=== PATIENT | female | born 1950 | race Caucasian/White ===

== ENCOUNTER 2021-10-19 11:44 | Outpatient (REF) | payer MEDICARE, SELFPAY ==
[2021-10-19 13:58] LABS: Estimated Average Glucose 148 mg/dL; Hemoglobin A1c % 6.8 %
[2021-10-19 14:24] LABS: Alanine Aminotransferase 22 U/L (0-31); Albumin Level 4.2 g/dL (3.5-5.0); Alkaline Phosphatase 71 U/L (39-117); Anion Gap 12 (12-20); Aspartate Amino Transferase 19 U/L (5-31); Bilirubin Total 0.3 mg/dL (0.0-1.0); Blood Urea Nitrogen 10 mg/dL (9-16); Calcium 8.9 mg/dL (8.4-10.2); Carbon Dioxide 28 mmol/L (22-29); Chloride 102 mmol/L (96-108); Estimated Glomerular Filt Rate > 60; Glucose Random 166 mg/dL (60-115); Potassium 4.6 mmol/L (3.3-5.1); Sodium 137 mmol/L (135-145); Total Protein 6.7 g/dL (6.5-8.0)
== END 2021-10-19 11:45 | disposition home or self-care (01) ==
LOC: HO.10HDL 11:44
PROVIDERS: Visit Provider Internal Medicine
DX: E11.9 Type 2 diabetes mellitus without complications (principal); E78.00 Pure hypercholesterolemia, unspecified; I10 Essential (primary) hypertension; Z91.19 Patient's noncompliance with other medical treatment and regimen
CPT/HCPCS: 36415; 80053; 83036

== ENCOUNTER 2022-02-18 08:27 | Observation (INO) | payer MEDICARE, SELFPAY ==
[2022-02-18] VITALS (8 sets, daily range): BP systolic 108–155; BP diastolic 48–80; PULSE 61–100; RESP 14–18; TEMP 36.8–36.9; O2SAT 92–100; BMI 27.3
--- NOTE | ~2022-02-18 | XR_ITS ---
EXAMINATION: XR CHEST CLINICAL INFORMATION: Shortness of breath COMPARISON: Multiple prior chest x-rays with last chest x-rays of 01/22/2017 TECHNIQUE: Frontal view of the chest was obtained. FINDINGS: The lungs are mildly hypoexpanded. Stable mild elevation of the right hemidiaphragm. Cardiomediastinal silhouette is stable and normal. No focal consolidation, changes of congestion, pleural effusions or pneumothorax are seen. Regional skeleton appears intact. XR/XR chest 1V IMPRESSION: No radiographic evidence of pneumonia or overt pulmonary edema.
--- NOTE | ~2022-02-18 | CT_ITS ---
EXAMINATION: CT ABDOMEN AND PELVIS WITH CONTRAST CT BRAIN AND CT CERVICAL SPINE WITHOUT CONTRAST CLINICAL INFORMATION: Altered mental status. COMPARISON: CT brain and cervical spine 07/10/2018. CT abdomen and pelvis 01/19/2017. TECHNIQUE: 5 mm thin axial and reformatted 2 mm thin sagittal and coronal images of brain were obtained. Axial 3 mm thin and reformatted 2 mm thin sagittal coronal images of cervical spine were obtained. DLP [id number]. Lastly axial 5 mm thin and reformatted 3 mm thin sagittal and coronal images of abdomen were obtained following IV 85 mL Omnipaque 350. FINDINGS: Brain: There is no acute intra-axial, extra-axial bleed, masses or midline shift. There is no acute infarction evolution. There is no edema. The lateral ventricles are symmetrical but enlarged. Mild periventricular hypodensity seen in both cerebral hemispheres without mass effect. Bone windows reveal no calvarial abnormality. There is no scalp soft tissue abnormality. Bilateral paranasal sinuses and mastoid air cells are well-aerated. There is mild mucoperiosteal thickening bilateral maxillary and ethmoid sinuses. Rest of this sinuses and mastoid air cells are well-aerated. Cervical spine: There is normal cervical lordosis. The vertebral heights, alignment and disc heights are normal. The craniovertebral junction and the C1-C2 alignment is normal. There is no visible acute fracture, dislocation or subluxation seen. The airway is widely patent. Prevertebral and paravertebral soft tissues are normal. The thyroid lobes are enlarged and heterogeneous with calcification question goiter. There are multiple scattered borderline anterior and posterior neck lymph nodes. Question etiology. The lung apices are clear. ABDOMEN AND PELVIS: There is dependent bibasilar atelectasis. The heart size is normal. The liver is normal size, contour and density. No focal lesion or intrahepatic ductal dilatation seen. The gallbladder has been surgically removed. Visualized spleen, pancreas and bilateral adrenal glands are unremarkable. Both kidneys are normal size, shape and position. No radiopaque calculi are hydronephrosis seen. The abdominal aorta is of normal caliber. No retroperitoneal abnormal size lymph nodes or mass seen. There is scattered stool, gas and scattered diverticula seen throughout the colon without diverticulitis or distention. The small bowel loops are normal caliber. Appendix is not visualized with certainty. The cecum is slightly prominent with air-fluid level. No free air or free fluid seen. The abdominal wall appears unremarkable. Imaging through the pelvis reveals a distended urinary bladder. The uterus is anteverted with thickened endometrium measuring 8 mm and is of normal. No adnexal mass or free fluid seen. There are reactive small inguinal lymph nodes. No abnormal pelvic lymph nodes seen. There is no free fluid. Heterogeneous bone marrow is seen throughout the lower dorsal and lumbosacral spine. There are degenerative disc changes L4-L5 L5/S1 disc levels. CT/CT cervical spine wo con IMPRESSION: No acute intracranial process seen. Age-related volume loss. There is no visible acute fracture, dislocation or subluxation in cervical spine. Slightly heterogeneous appearing bone marrow involving the cervical, dorsal and lumbosacral spine. Distended urinary bladder. There is diffuse thickened endometrium and anteverted uterus. Recommend gynecological consultation. Slightly prominent cecum but otherwise unremarkable colon with mild constipation.
--- NOTE | ~2022-02-18 | MR_ITS ---
EXAMINATION: MR BRAIN WITHOUT CONTRAST CLINICAL INFORMATION: Question posterior stroke. COMPARISON: Head CT 02/18/2022. TECHNIQUE: Multiplanar, multisequence imaging of the brain was performed without intravenous contrast. FINDINGS: There is no acute infarction, hemorrhage, mass, or extra-axial fluid collection. Moderate patchy foci of T2/FLAIR hyperintensity are seen within the cerebral white matter, typical of chronic microangiopathy. The ventricles are normal in size and commensurate with the sulci. Mild degree of brain parenchymal volume loss is noted. The major arterial flow voids are preserved at the skull base. The orbital contents appear normal. There is paranasal sinus mucosal thickening and layering secretions in the maxillary sinuses. The extracranial structures are otherwise unremarkable. MR/MR head/brain wo con IMPRESSION: No acute intracranial abnormality. Background changes of chronic microangiopathy. Inflammatory changes in the paranasal sinuses.
--- NOTE | ~2022-02-18 | XR_ITS ---
EXAMINATION: XR KNEE, LEFT CLINICAL INFORMATION: Fall COMPARISON: None TECHNIQUE: Four views of the left knee. FINDINGS: There is no evidence of acute fracture or dislocation of the left knee. The left knee joint spaces are maintained. No left knee effusion. Patella spurs at sites of insertion of quadriceps and patellar tendons noted. XR/XR knee LT 3V IMPRESSION: No acute fracture or dislocation of the left knee. No left knee effusion.
--- NOTE | 2022-02-18 08:52 | PC.NURSE ---
pt alert but not oriented. she is aware she is in [facility], believes it is night time and that jose is president, she was able to self correct and report the proper president. pt reporting it is dirk
--- NOTE | 2022-02-18 09:12 | ECG_ITS ---
Test Reason : fall Blood Pressure : / mmHG Vent. Rate : 089 BPM Atrial Rate : 089 BPM P-R Int : 178 ms QRS Dur : 086 ms QT Int : 358 ms P-R-T Axes : 055 -15 014 degrees QTc Int : 435 ms Normal sinus rhythm Possible Left atrial enlargement Inferior infarct (cited on or before 10-JUL-2018) Cannot rule out Anterior infarct , age undetermined Abnormal ECG When compared with ECG of 10-JUL-2018 09:58, Minimal criteria for Anterior infarct are now Present Nonspecific T wave abnormality now evident in Anterior leads Referred By: Adilene Watson Electronically Signed By:Salinas Cheng
--- NOTE | 2022-02-18 09:25 | ED_ITS ---
HPI - Fall General Chief Complaint: Fall Stated Complaint: fall Time Seen by Provider: 02/18/22 08:44 History of Present Illness HPI Narrative: Patient is a 71-year-old female presents today having 2 falls. The initial fall was last night. Patient was helped by EMS to get up. Subsequently fell again a 2nd time. A 2nd fall happened around midnight. Patient was on the ground all night. Subsequently EMS was contacted by patient's [id number] mother. Patient was brought to the ED for further evaluation. Patient complaining of pain to her neck. Complaining of pain to her back. Julita plana pain to the left knee. There is no bowel urinary incontinence. There is no focal weakness. Positive generalized malaise. Patient denies any changes in medication. Question compliance with beta-chapincito patient has a history of being on Ambien. No coughing or congestion or upper respiratory symptoms. No diaphoresis. Patient immunized for COVID. Related Data Home Medications Medication Instructions Recorded Confirmed aspirin 81 mg tablet,delayed 1 tab PO DAILY 02/18/22 02/18/22 release carvedilol 3.125 mg tablet 1 tab PO BID 02/18/22 02/18/22 clonazepam 0.5 mg tablet 0.5 mg PO BID@0900,1200 02/18/22 02/18/22 clonazepam 0.5 mg tablet 0.5 mg PO DAILY PRN 02/18/22 02/18/22 clonazepam 0.5 mg tablet 1 mg PO BEDTIME 02/18/22 02/18/22 escitalopram oxalate 10 mg tablet 1 tab PO DAILY 02/18/22 02/18/22 hydroxyzine pamoate 50 mg capsule 2 cap PO BEDTIME 02/18/22 02/18/22 ibuprofen 200 mg tablet (Advil) 400 mg PO Q6H PRN 02/18/22 02/18/22 metformin 500 mg tablet 1 tab PO BID 02/18/22 02/18/22 olanzapine 5 mg tablet 1 tab PO QPM 02/18/22 02/18/22 zolpidem 10 mg tablet 1 tab PO QPM 02/18/22 02/18/22 Allergies Allergy/AdvReac Type Severity Reaction Status Date / Time No Known Allergies Allergy Unverified 08/18/20 16:05 [No Known Allergies*] Review of Systems Review of Systems: No fever no chills No cough and no congestion or upper respiratory symptoms No diaphoresis Positive generalized malaise Questions sore throat No bowel urinary incontinence No nausea no vomiting Yes all other systems are reviewed and are negative [facility] Past Medical History Attestation statement: The following information was validated with the patient. Medical History (Updated 02/18/22 @ 16:02 by Sia Greene NP) Anxiety Diabetes mellitus Surgical History (Updated 02/18/22 @ 16:02 by Sia Greene NP) History of cholecystectomy Family History Family History (Updated 02/18/22 @ 16:03 by Sia Greene NP) Other Cancer Coronary artery disease Diabetes mellitus Hypertension Social History Social History Advance Directives: Yes Advance Directives Information Provided: Yes Advance Directives on File: No Physical Exam Vital Signs: Vital Signs: Last Vital Signs Temp 98.3 F 02/18/22 08:43 Pulse 100 02/18/22 15:44 Resp 14 02/18/22 12:42 BP 115/52 L 02/18/22 15:44 Pulse Ox 100 02/18/22 15:44 BMI result Body Mass Index 27.3 Appearance: Generalized malaise awake alert answering basic questions oriented x3 No acute distress. Eyes: Pupils equal, round and reactive to light. ENT: Pharynx normal. Neck: Normal inspection. Neck supple. No lymph nodes noted. No crepitus CVS: Normal heart rate and rhythm. Pulses normal. Normal S1 and S2 Respiratory: No respiratory distress. Breath sounds normal. No Wheezing. No rales Abdomen: Soft and nontender. No rigidity. No distention. good BS x4 Skin: Skin warm and dry. Normal skin color. Normal skin turgor. Extremities: No lower extremity edema. Neurovascular intact to all extremities. No Lacerations. No Rash Neuro: Lethargic but oriented. No motor deficit. No sensory deficit. Moving all extermities. No slurred speech NIH Stroke Scale Internal: Initial- Upon Arrival Level of Consciousness: Alert Level of Consciousness Questions: Answers both questions correctly Level of Consciousness Commands: Performs both tasks correctly Best Gaze: Normal Visual: No visual loss Facial Palsy: Normal Motor Arm (Right): No drift Motor Arm (Left): No drift Motor Leg (Right): No drift Motor Leg (Left): No drift Limb Ataxia: Absent Sensory: Normal Dysarthia: Normal Extinction and Inattention: No abnormality MDM - Fall MDM Narrative Medical decision making narrative: CT the head was grossly negative for any acute evidence of intracranial bleeding. CT scan of the C-spine were grossly negative for any acute evidence of fracture. CT scan of the abdomen pelvis was negative for any acute evidence of obstruction, abscess, perforation. Patient complaining of generalized malaise weakness. Change in mental status. More lethargic than baseline. Sugar was 133. No evidence for hypoglycemia. Patient's urine showed no evidence of infection. Patient electrolytes were normal. Positive generalized malaise weakness ambulated patient. Has a wide gait. Question etiology of the change in gait. Cannot rule out the possibility of posterior circulation stroke. Will admit patient for further evaluation. Patient's EKG showed a sinus pattern heart rate was 100 [place] QRS QT within normal limits no acute ST segment elevation. Medical Records Attestation: I reviewed the patient's medical records. Lab Data Attestation: I reviewed the patient's lab results. Result diagrams: 02/18/22 09:37 02/18/22 09:37 Labs: Lab Results 02/18/22 02/18/22 02/18/22 Range/Units 09:37 09:37 09:37 WBC 8.9 (4.8-10.8) X10*3/uL RBC 4.63 (4.20-5.50) X10*6/uL Hgb 13.6 (12.0-16.0) g/dl Hct 41.7 (37.0-47.0) % MCV 90.1 (80.0-98.0) fL MCH 29.4 (27.0-33.0) pg MCHC 32.6 (31.0-35.0) g/dl RDW 13.3 (11.0-16.0) % Plt Count 225 (160-400) X10*3/uL MPV 10.1 (9.4-12.3) fL Immature Gran % (Auto) 0.3 (0.0-0.4) % Neut % (Auto) 76.2 H (45-73) % Lymph % (Auto) 12.5 L (20-40) % [place] % (Auto) 9.1 (2-11) % Eos % (Auto) 1.6 (0-4) % Baso % (Auto) 0.3 (0-2) % Lymph # (Auto) 1.1 L (1.2-4.9) X10*3/uL [place] # (Auto) 0.8 (0.1-1.2) X10*3/uL Eos # (Auto) 0.1 (0.0-0.4) X10*3/uL Baso # (Auto) 0.0 (0.0-0.2) X10*3/uL Abs Immat Gran (auto) 0.03 (0.00-0.03) X10*3/uL Absolute Neuts (auto) 6.7 (2.0-8.3) x10*3/uL Absolute Nucleated RBC 0.000 (0.0-0.012) X10*3/uL Nucleated RBC % (auto) 0.0 (0.0-0.2) /100WBC VBG pH (7.32-7.43) VBG pCO2 mmHg VBG pO2 mmHg VBG HCO3 (22-26) mmol/L VBG O2 Saturation % VBG Base Excess mmol/L Sodium 137 (135-145) mmol/L Potassium 3.9 (3.3-5.1) mmol/L Chloride 99 (96-108) mmol/L Carbon Dioxide 29 (22-29) mmol/L Anion Gap 13 (12-20) BUN 11 (9-16) mg/dL Creatinine 0.71 (0.5-1.4) mg/dL Estim Creat Clear Calc 77.1 Estimated GFR > 60 Random Glucose 133 H (60-115) mg/dL Calcium 9.6 D (8.4-10.2) mg/dL Total Bilirubin 0.5 (0.0-1.0) mg/dL Direct Bilirubin 0.2 (0.0-0.5) mg/dL AST 25 (5-31) U/L ALT 20 (0-31) U/L Alkaline Phosphatase 63 (39-117) U/L Total Creatine Kinase 687 H (26-140) U/L Troponin I High Sens < 3.5 (<3.5-17.0) ng/L Total Protein 7.0 (6.5-8.0) g/dL Albumin 4.4 (3.5-5.0) g/dL Lipase 21 (8-78) U/L Urine Color Urine Appearance Urine pH (5.0-8.0) Ur Specific [place] (1.005-1.025) Urine Protein (NEG-TRACE) MG/DL Urine Glucose (UA) (NEG) MG/DL Urine Ketones (NEG) MG/DL Urine Blood (NEG) Urine Nitrite (NEG) Ur Leukocyte Esterase (NEG) Urine RBC (0) /HPF Urine WBC (0-4) /HPF Ur Squamous Epith Cells /LPF Urine Bacteria /LPF Ethyl Alcohol mg/dL S. pyogenes GrpA CHAGO (Negative) 02/18/22 02/18/22 02/18/22 Range/Units 09:37 09:37 09:39 WBC (4.8-10.8) X10*3/uL RBC (4.20-5.50) X10*6/uL Hgb (12.0-16.0) g/dl Hct (37.0-47.0) % MCV (80.0-98.0) fL MCH (27.0-33.0) pg MCHC (31.0-35.0) g/dl RDW (11.0-16.0) % Plt Count (160-400) X10*3/uL MPV (9.4-12.3) fL Immature Gran % (Auto) (0.0-0.4) % Neut % (Auto) (45-73) % Lymph % (Auto) (20-40) % [place] % (Auto) (2-11) % Eos % (Auto) (0-4) % Baso % (Auto) (0-2) % Lymph # (Auto) (1.2-4.9) X10*3/uL [place] # (Auto) (0.1-1.2) X10*3/uL Eos # (Auto) (0.0-0.4) X10*3/uL Baso # (Auto) (0.0-0.2) X10*3/uL Abs Immat Gran (auto) (0.00-0.03) X10*3/uL Absolute Neuts (auto) (2.0-8.3) x10*3/uL Absolute Nucleated RBC (0.0-0.012) X10*3/uL Nucleated RBC % (auto) (0.0-0.2) /100WBC VBG pH 7.38 (7.32-7.43) VBG pCO2 55 mmHg VBG pO2 30 mmHg VBG HCO3 32 H (22-26) mmol/L VBG O2 Saturation 40.0 % VBG Base Excess 6.0 mmol/L Sodium (135-145) mmol/L Potassium (3.3-5.1) mmol/L Chloride (96-108) mmol/L Carbon Dioxide (22-29) mmol/L Anion Gap (12-20) BUN (9-16) mg/dL Creatinine (0.5-1.4) mg/dL Estim Creat Clear Calc Estimated GFR Random Glucose (60-115) mg/dL Calcium (8.4-10.2) mg/dL Total Bilirubin (0.0-1.0) mg/dL Direct Bilirubin (0.0-0.5) mg/dL AST (5-31) U/L ALT (0-31) U/L Alkaline Phosphatase (39-117) U/L Total Creatine Kinase (26-140) U/L Troponin I High Sens (<3.5-17.0) ng/L Total Protein (6.5-8.0) g/dL Albumin (3.5-5.0) g/dL Lipase (8-78) U/L Urine Color Urine Appearance Urine pH (5.0-8.0) Ur Specific [place] (1.005-1.025) Urine Protein (NEG-TRACE) MG/DL Urine Glucose (UA) (NEG) MG/DL Urine Ketones (NEG) MG/DL Urine Blood (NEG) Urine Nitrite (NEG) Ur Leukocyte Esterase (NEG) Urine RBC (0) /HPF Urine WBC (0-4) /HPF Ur Squamous Epith Cells /LPF Urine Bacteria /LPF Ethyl Alcohol < 10 mg/dL S. pyogenes GrpA CHAGO Negative (Negative) 02/18/22 Range/Units 14:03 WBC (4.8-10.8) X10*3/uL RBC (4.20-5.50) X10*6/uL Hgb (12.0-16.0) g/dl Hct (37.0-47.0) % MCV (80.0-98.0) fL MCH (27.0-33.0) pg MCHC (31.0-35.0) g/dl RDW (11.0-16.0) % Plt Count (160-400) X10*3/uL MPV (9.4-12.3) fL Immature Gran % (Auto) (0.0-0.4) % Neut % (Auto) (45-73) % Lymph % (Auto) (20-40) % [place] % (Auto) (2-11) % Eos % (Auto) (0-4) % Baso % (Auto) (0-2) % Lymph # (Auto) (1.2-4.9) X10*3/uL [place] # (Auto) (0.1-1.2) X10*3/uL Eos # (Auto) (0.0-0.4) X10*3/uL Baso # (Auto) (0.0-0.2) X10*3/uL Abs Immat Gran (auto) (0.00-0.03) X10*3/uL Absolute Neuts (auto) (2.0-8.3) x10*3/uL Absolute Nucleated RBC (0.0-0.012) X10*3/uL Nucleated RBC % (auto) (0.0-0.2) /100WBC VBG pH (7.32-7.43) VBG pCO2 mmHg VBG pO2 mmHg VBG HCO3 (22-26) mmol/L VBG O2 Saturation % VBG Base Excess mmol/L Sodium (135-145) mmol/L Potassium (3.3-5.1) mmol/L Chloride (96-108) mmol/L Carbon Dioxide (22-29) mmol/L Anion Gap (12-20) BUN (9-16) mg/dL Creatinine (0.5-1.4) mg/dL Estim Creat Clear Calc Estimated GFR Random Glucose (60-115) mg/dL Calcium (8.4-10.2) mg/dL Total Bilirubin (0.0-1.0) mg/dL Direct Bilirubin (0.0-0.5) mg/dL AST (5-31) U/L ALT (0-31) U/L Alkaline Phosphatase (39-117) U/L Total Creatine Kinase (26-140) U/L Troponin I High Sens (<3.5-17.0) ng/L Total Protein (6.5-8.0) g/dL Albumin (3.5-5.0) g/dL Lipase (8-78) U/L Urine Color STRAW Urine Appearance CLEAR Urine pH 5.5 (5.0-8.0) Ur Specific [place] <= 1.005 (1.005-1.025) Urine Protein NEG (NEG-TRACE) MG/DL Urine Glucose (UA) NEG (NEG) MG/DL Urine Ketones 5 (NEG) MG/DL Urine Blood TRACE (NEG) Urine Nitrite NEG (NEG) Ur Leukocyte Esterase NEG (NEG) Urine RBC 0-2 (0) /HPF Urine WBC 0 (0-4) /HPF Ur Squamous Epith Cells TRACE /LPF Urine Bacteria NONE /LPF Ethyl Alcohol mg/dL S. pyogenes GrpA CHAGO (Negative) Discharge Plan Discharge Clinical Impression: Dizziness Patient Disposition: Admitted As Inpatient
[2022-02-18 09:42] LABS: MANUAL DIFF FLAG NO
[2022-02-18 09:43] LABS: Basophils Percent Auto 0.3 % (0-2); Eosinophils Absolute Auto 0.1 X10*3/uL (0.0-0.4); Eosinophils Percent Auto 1.6 % (0-4); Hematocrit 41.7 % (37.0-47.0); Hemoglobin 13.6 g/dl (12.0-16.0); Imm Gran Abs Auto 0.03 X10*3/uL (0.00-0.03); Imm Gran Pct Auto 0.3 % (0.0-0.4); Lymphocytes Absolute Auto 1.1 X10*3/uL (1.2-4.9); Lymphocytes Percent Auto 12.5 % (20-40); Mean Corpuscular HGB Conc 32.6 g/dl (31.0-35.0); Mean Corpuscular Hemoglobin 29.4 pg (27.0-33.0); Mean Corpuscular Volume 90.1 fL (80.0-98.0); Mean Platelet Volume 10.1 fL (9.4-12.3); Monocytes Absolute Auto 0.8 X10*3/uL (0.1-1.2); Monocytes Percent Auto 9.1 % (2-11); Neutrophils Absolute Auto 6.7 x10*3/uL (2.0-8.3); Neutrophils Percent Auto 76.2 % (45-73); Platelet Count 225 X10*3/uL (160-400); Red Blood Count 4.63 X10*6/uL (4.20-5.50); Red Cell Distribution Width 13.3 % (11.0-16.0); White Blood Count 8.9 X10*3/uL (4.8-10.8)
[2022-02-18 09:44] LABS: Venous Blood Gas Refer to POC result
[2022-02-18] MEDS: 0.9 % Sodium Chloride 500 ML 999 ML IV (09:45)
[2022-02-18 09:46] LABS: VBG HCO3 32 mmol/L (22-26); VBG pCO2 55 mmHg; VBG pH 7.38 (7.32-7.43); VBG pO2 30 mmHg
[2022-02-18 09:57] LABS: Strep A Nucleic Acid Negative (Negative)
[2022-02-18 09:58] LABS: Ethanol < 10 mg/dL
[2022-02-18 10:03] LABS: Troponin-I High Sensitivity < 3.5 ng/L (<3.5-17.0)
[2022-02-18 10:06] LABS: Alanine Aminotransferase 20 U/L (0-31); Albumin Level 4.4 g/dL (3.5-5.0); Alkaline Phosphatase 63 U/L (39-117); Anion Gap 13 (12-20); Aspartate Amino Transferase 25 U/L (5-31); Bilirubin Direct 0.2 mg/dL (0.0-0.5); Bilirubin Total 0.5 mg/dL (0.0-1.0); Blood Urea Nitrogen 11 mg/dL (9-16); Calcium 9.6 mg/dL (8.4-10.2); Carbon Dioxide 29 mmol/L (22-29); Chloride 99 mmol/L (96-108); Creatinine Clr Calc Pharmacy 77.1; Estimated Glomerular Filt Rate > 60; Glucose Random 133 mg/dL (60-115); Lipase 21 U/L (8-78); Potassium 3.9 mmol/L (3.3-5.1); Sodium 137 mmol/L (135-145)
--- NOTE | 2022-02-18 10:48 | PC.NURSE ---
PT HELPED TO BEDPAN
[2022-02-18] MEDS: iohexoL 350 MG/ML 100 ML INFUS..BTL IV (12:35)
--- NOTE | 2022-02-18 12:44 | PHA.MEDREC ---
Pharmacy Consult ? Medication Reconciliation Pharmacy has completed the medication reconciliation. There are no remarkable issues for provider's attention. Griselda Lindquist, BinduD
[2022-02-18 14:17] LABS: Appearance Urine CLEAR; Color Urine STRAW; Glucose Urine UA NEG (NEG); Leukocyte Esterase Urine NEG (NEG); Nitrite Urine NEG (NEG); PH 5.5 (5.0-8.0); Specific Gravity - Urine <= 1.005 (1.005-1.025); UACC Culture Trigger NO; Urine Blood TRACE (NEG); Urine Ketones 5 MG/DL (NEG); Urine Protein NEG (NEG-TRACE)
[2022-02-18 14:24] LABS: RBC Urine 0-2 /HPF (0); Squamous Epithelial Cell Urine TRACE /LPF; WBC Urine 0 /HPF (0-4)
--- NOTE | 2022-02-18 15:17 | PC.NURSE ---
brother (ty) to belt picker patient
--- NOTE | 2022-02-18 15:17 | PC.NURSE ---
pt incontinent of urine x2 - reports she cant tell when she needs to pee because she is here educated on safe d/c and needing to have ability to care for herself for d/c. educated on use of call nielson to go to the bathroom
--- NOTE | 2022-02-18 15:57 | PC.NURSE ---
marcelino griffin (counts include 234 beds at the [facility]) [phone]
--- NOTE | 2022-02-18 16:00 | PM.IMHP ---
History of Present Illness Date of Service: 02/18/22 <Sia Greene NP - Last Filed: 02/18/22 16:28> Chief Complaint: Fall <Sia Greene NP - Last Filed: 02/18/22 16:28> 71 year old women presented to the ER after 2 falls at home. She had a fall last night and then she had a fall overnight around midnight and was on the floor up until the morning until EMS was contacted again by her 100 2-year-old mother. Patient had complaints of neck and back pain. She had multiple diagnostic imaging studies including, head CT negative for acute abnormality, cervical spine CT with no acute fracture, dislocation or subluxation, abdominal CT showed distended urinary bladder with no otherwise acute abnormality other than mild constipation , chest x-ray was negative for any consolidation or effusion, and left knee x-ray was negative for acute fracture. All of her labs are within acceptable limits, vital signs stable. patient denied any loss of consciousness, dizziness, nausea, vomiting, diarrhea, chest pain, shortness of breath. She reported that she felt weak and felt like her legs went from under her. She reports prior to this she had not had any falls and has been independent taking care of her elderly mother. She did receive some IV fluids in the ER. Plan is to place on observation for fall and rule out posterior stroke versus other abnormality. <Sia Greene NP - Last Filed: 02/18/22 16:28> Review of Systems Review of Systems: Denies any recent fever chills or decrease in appetite respiratory denies any shortness of breath coverage production cardiovascular is adjustment of any PND or edema gastrointestinal denies any dysphagia abdominal pain nausea vomiting or diarrhea genitourinary denies any dysuria frequency or hematuria musculoskeletal Reports neck and back pain neuropsych denies any weakness or seizures all other systems reviewed are negative <Sia Greene NP - Last Filed: 02/18/22 16:28> [facility] Medical History: Medical History (Updated 02/18/22 @ 16:02 by Sia Greene NP) Anxiety Diabetes mellitus <Sia Greene NP - Last Filed: 02/18/22 16:28> Family History: Family History (Updated 02/18/22 @ 16:03 by Sia Greene NP) Other Cancer Coronary artery disease Diabetes mellitus Hypertension <Sia Greene NP - Last Filed: 02/18/22 16:28> Surgical History: Surgical History (Updated 02/18/22 @ 16:02 by Sia Greene NP) History of cholecystectomy <Sia Greene NP - Last Filed: 02/18/22 16:28> Social History: Social History Advance Directives: Yes Advance Directives Information Provided: Yes Advance Directives on File: No <Sia Greene NP - Last Filed: 02/18/22 16:28> Meds Allergies/Adverse reactions: Allergies Allergy/AdvReac Type Severity Reaction Status Date / Time No Known Allergies Allergy Unverified 08/18/20 16:05 [No Known Allergies*] <Sia Greene NP - Last Filed: 02/18/22 16:28> Active Medications: Current Medications Pharmacy Consult (Consult Rx Perform Med Rec) 1 each MISCELLANE ONCE PRN PRN Reason: Consult order <Sia Greene NP - Last Filed: 02/18/22 16:28> Home medications: Home Medications Medication Instructions Recorded Confirmed Last Taken Type aspirin 81 mg tablet,delayed 1 tab PO DAILY 02/18/22 02/18/22 02/17/22 History release carvedilol 3.125 mg tablet 1 tab PO BID 02/18/22 02/18/22 02/18/22 History clonazepam 0.5 mg tablet 0.5 mg PO BID@0900,1200 02/18/22 02/18/22 02/18/22 History clonazepam 0.5 mg tablet 0.5 mg PO DAILY PRN 02/18/22 02/18/22 02/17/22 History clonazepam 0.5 mg tablet 1 mg PO BEDTIME 02/18/22 02/18/22 02/17/22 History escitalopram oxalate 10 mg tablet 1 tab PO DAILY 02/18/22 02/18/22 02/18/22 History hydroxyzine pamoate 50 mg capsule 2 cap PO BEDTIME 02/18/22 02/18/22 02/17/22 History ibuprofen 200 mg tablet (Advil) 400 mg PO Q6H PRN 02/18/22 02/18/22 02/17/22 History metformin 500 mg tablet 1 tab PO BID 02/18/22 02/18/22 02/17/22 History olanzapine 5 mg tablet 1 tab PO QPM 02/18/22 02/18/22 02/17/22 History zolpidem 10 mg tablet 1 tab PO QPM 02/18/22 02/18/22 02/17/22 History <Sia Greene NP - Last Filed: 02/18/22 16:28> Physical Exam Vital Signs and Narrative: Vital Signs: Last Vital Signs Temp 98.3 F 02/18/22 08:43 Pulse 100 02/18/22 15:44 Resp 14 02/18/22 12:42 BP 115/52 L 02/18/22 15:44 Pulse Ox 100 02/18/22 15:44 BMI result Body Mass Index 27.3 <Sia Greene NP - Last Filed: 02/18/22 16:28> Appearing in no acute distress head is normocephalic atraumatic eyes pupils are PERRLA sclera is anicteric mouth throat mucous membranes are intact and moist neck is supple no lymphadenopathy, no JVD noted lung sounds are clear to auscultation heart regular rate rhythm, clear S1, S2 positive bowel sounds, abdomen is soft, nontender neuro patient is alert x3, no focal deficits Appears to have nystagmus even some rotary nystagmus <Sia Greene NP - Last Filed: 02/18/22 16:28> Results Labs CBC and Chem 7: : 02/18/22 09:37 02/18/22 09:37 <Sia Greene NP - Last Filed: 02/18/22 16:28> Labs: Laboratory Results - last 24 hr 02/18/22 02/18/22 02/18/22 09:37 09:37 09:37 MCV 90.1 MCH 29.4 MCHC 32.6 RDW 13.3 Plt Count 225 MPV 10.1 Immature Gran % (Auto) 0.3 Neut % (Auto) 76.2 H Lymph % (Auto) 12.5 L [place] % (Auto) 9.1 Eos % (Auto) 1.6 Baso % (Auto) 0.3 Lymph # (Auto) 1.1 L [place] # (Auto) 0.8 Eos # (Auto) 0.1 Baso # (Auto) 0.0 Abs Immat Gran (auto) 0.03 Absolute Neuts (auto) 6.7 Absolute Nucleated RBC 0.000 Nucleated RBC % (auto) 0.0 VBG pH VBG pCO2 VBG pO2 VBG HCO3 VBG O2 Saturation VBG Base Excess Anion Gap 13 Estim Creat Clear Calc 77.1 Estimated GFR > 60 Random Glucose 133 H Calcium 9.6 D Total Bilirubin 0.5 Direct Bilirubin 0.2 AST 25 ALT 20 Alkaline Phosphatase 63 Total Creatine Kinase 687 H Total Protein 7.0 Albumin 4.4 Lipase 21 Urine Color Urine Appearance Urine pH Ur Specific [place] Urine Protein Urine Glucose (UA) Urine Ketones Urine Blood Urine Nitrite Ur Leukocyte Esterase Urine RBC Urine WBC Ur Squamous Epith Cells Urine Bacteria Ethyl Alcohol < 10 S. pyogenes GrpA CHAGO 02/18/22 02/18/22 02/18/22 09:37 09:39 14:03 MCV MCH MCHC RDW Plt Count MPV Immature Gran % (Auto) Neut % (Auto) Lymph % (Auto) [place] % (Auto) Eos % (Auto) Baso % (Auto) Lymph # (Auto) [place] # (Auto) Eos # (Auto) Baso # (Auto) Abs Immat Gran (auto) Absolute Neuts (auto) Absolute Nucleated RBC Nucleated RBC % (auto) VBG pH 7.38 VBG pCO2 55 VBG pO2 30 VBG HCO3 32 H VBG O2 Saturation 40.0 VBG Base Excess 6.0 Anion Gap Estim Creat Clear Calc Estimated GFR Random Glucose Calcium Total Bilirubin Direct Bilirubin AST ALT Alkaline Phosphatase Total Creatine Kinase Total Protein Albumin Lipase Urine Color STRAW Urine Appearance CLEAR Urine pH 5.5 Ur Specific [place] <= 1.005 Urine Protein NEG Urine Glucose (UA) NEG Urine Ketones 5 Urine Blood TRACE Urine Nitrite NEG Ur Leukocyte Esterase NEG Urine RBC 0-2 Urine WBC 0 Ur Squamous Epith Cells TRACE Urine Bacteria NONE Ethyl Alcohol S. pyogenes GrpA CHAGO Negative <Sia Greene NP - Last Filed: 02/18/22 16:28> Imaging Radiologist's Impressions: Impressions Chest X-Ray 02/18/22 09:52 IMPRESSION: No radiographic evidence of pneumonia or overt pulmonary edema. Knee X-Ray 02/18/22 09:52 IMPRESSION: No acute fracture or dislocation of the left knee. No left knee effusion. Abdomen/Pelvis CT 02/18/22 12:35 IMPRESSION: No acute intracranial process seen. Age-related volume loss. There is no visible acute fracture, dislocation or subluxation in cervical spine. Slightly heterogeneous appearing bone marrow involving the cervical, dorsal and lumbosacral spine. Distended urinary bladder. There is diffuse thickened endometrium and anteverted uterus. Recommend gynecological consultation. Slightly prominent cecum but otherwise unremarkable colon with mild constipation. Cervical Spine CT 02/18/22 12:35 IMPRESSION: No acute intracranial process seen. Age-related volume loss. There is no visible acute fracture, dislocation or subluxation in cervical spine. Slightly heterogeneous appearing bone marrow involving the cervical, dorsal and lumbosacral spine. Distended urinary bladder. There is diffuse thickened endometrium and anteverted uterus. Recommend gynecological consultation. Slightly prominent cecum but otherwise unremarkable colon with mild constipation. Head CT 02/18/22 12:35 IMPRESSION: No acute intracranial process seen. Age-related volume loss. There is no visible acute fracture, dislocation or subluxation in cervical spine. Slightly heterogeneous appearing bone marrow involving the cervical, dorsal and lumbosacral spine. Distended urinary bladder. There is diffuse thickened endometrium and anteverted uterus. Recommend gynecological consultation. Slightly prominent cecum but otherwise unremarkable colon with mild constipation. <Sia Greene NP - Last Filed: 02/18/22 16:28> Assessment and Plan (1) Dizziness: Status: Acute <Sia Greene NP - Last Filed: 02/18/22 16:28> Plan 71-year-old woman admitted the ER after falls feeling off balance. Placed on observation Fall. no injury noted on diagnostic imaging. Patient denied loss of consciousness PT consultation Out of bed with assist Will place on telemetry monitoring to rule out arrhythmia MRI ordered to rule out posterior stroke in light of rotary nystagmus Neuro checks Diabetes mellitus Signs scale, ADA diet Mental health Continue home medications including beta-chapincito DVT prophylaxis with Attending Dr. Mooney Full code <Sia Greene NP - Last Filed: 02/18/22 16:28> Quality Stroke Does the patient have a stroke diagnosis?: No <Sia Greene NP - Last Filed: 02/18/22 16:28> VTE Prior VTE?: No <Sia Greene NP - Last Filed: 02/18/22 16:28> VTE Risk Level:: Medical - moderate - high <BRANDEE Hylton Last Filed: 02/18/22 16:28> VTE Device Contraindication: N/A - Device Ordered <BRANDEE Hylton Last Filed: 02/18/22 16:28> VTE Drug Contraindication: Treatment Not Indicated <Sia Greene NP - Last Filed: 02/18/22 16:28>
[2022-02-18 16:28] LABS: COVID-19 Test Negative (Negative); IDNOW Serial# 16C4AD1C
[2022-02-18 16:46] LABS: Glucose, Whole Blood 129 mg/dL (60-115)
--- NOTE | 2022-02-18 16:54 | PC.NURSE ---
pt off unit to MRI
[2022-02-18 22:50] LABS: Glucose, Whole Blood 206 mg/dL (60-115)
[2022-02-18] MEDS: Insulin Lispro 100 UNIT/ML 3 ML VIAL SUBCUT (22:52)
[2022-02-18] MEDS: 0.9 % Sodium Chloride Flush 3 ML SYRINGE IVFLUSH (23:57)
[2022-02-19 00:30] VITALS: BP 132/51; PULSE 74; RESP 20; TEMP 37; O2SAT 94
[2022-02-19 05:00] VITALS: BP 123/52; PULSE 90; RESP 20; TEMP 36.3; O2SAT 94
[2022-02-19 06:28] LABS: MANUAL DIFF FLAG NO
[2022-02-19 06:53] LABS: Basophils Percent Auto 0.5 % (0-2); Eosinophils Absolute Auto 0.2 X10*3/uL (0.0-0.4); Eosinophils Percent Auto 2.6 % (0-4); Hematocrit 40.7 % (37.0-47.0); Hemoglobin 13.2 g/dl (12.0-16.0); Imm Gran Abs Auto 0.02 X10*3/uL (0.00-0.03); Imm Gran Pct Auto 0.2 % (0.0-0.4); Lymphocytes Absolute Auto 1.4 X10*3/uL (1.2-4.9); Mean Corpuscular HGB Conc 32.4 g/dl (31.0-35.0); Mean Corpuscular Hemoglobin 29.3 pg (27.0-33.0); Mean Corpuscular Volume 90.2 fL (80.0-98.0); Mean Platelet Volume 10.4 fL (9.4-12.3); Monocytes Percent Auto 11.7 % (2-11); Neutrophils Absolute Auto 5.5 x10*3/uL (2.0-8.3); Platelet Count 224 X10*3/uL (160-400); Red Blood Count 4.51 X10*6/uL (4.20-5.50); Red Cell Distribution Width 13.5 % (11.0-16.0); White Blood Count 8.1 X10*3/uL (4.8-10.8)
[2022-02-19 07:03] LABS: Anion Gap 15 (12-20); Blood Urea Nitrogen 15 mg/dL (9-16); Calcium 8.9 mg/dL (8.4-10.2); Carbon Dioxide 24 mmol/L (22-29); Chloride 103 mmol/L (96-108); Creatinine Clr Calc Pharmacy 79.3; Estimated Glomerular Filt Rate > 60; Glucose Random 113 mg/dL (60-115); Potassium 3.5 mmol/L (3.3-5.1); Sodium 138 mmol/L (135-145)
[2022-02-19 07:58] LABS: Glucose, Whole Blood 136 mg/dL (60-115)
[2022-02-19 08:38] VITALS: BP 123/52; PULSE 90; O2SAT 94
[2022-02-19 10:06] VITALS: BP 133/54; PULSE 100; RESP 18; TEMP 36.9; O2SAT 99
[2022-02-19] MEDS: Aspirin Enteric Coated 81 MG TABLET.DR PO (10:35)
[2022-02-19] MEDS: clonazePAM 0.5 MG TABLET PO (10:35)
[2022-02-19] MEDS: carvediloL 3.125 MG TABLET PO (10:35)
[2022-02-19 11:25] LABS: Appearance Urine CLOUDY; Color Urine YELLOW; Glucose Urine UA 500 MG/DL (NEG); Leukocyte Esterase Urine NEG (NEG); Nitrite Urine NEG (NEG); Specific Gravity - Urine 1.025 (1.005-1.025); UACC Culture Trigger NO; Urine Blood 1+ (NEG); Urine Ketones 15 MG/DL (NEG); Urine Protein 1+ MG/DL (NEG-TRACE)
--- NOTE | 2022-02-19 12:09 | MHC.CM.PN ---
Addendum entered by Sara Manley 02/19/22 15:54: [facility] HAS GIVEN AUTH. FOR STR AT [facility] TRANSPORTATION ARRANGED FOR 1700 HOURS. Addendum entered by Sara Manley 02/19/22 13:21: PT INFORMED DAY [facility] IS OFFERING A BED PENDING INSURANCE AUTH PT ACCEPTING BED OFFER [facility] SUBMITTING FOR INSURANCE AUTH Original Note: PT REPORTS SHE LIVES AT HOME WITH HER 102 YO MOTHER WHO SHE CARES FOR PRN PT REPORTS SHE HAS NO SERVICES AND NO DME AT HOME PT CONFIRMS HER PCP IS LINDEN FRANK PT COMPLETED A HCP TODAY NAMING HER [id number] HER AGENT PT REPORTS SHE RECEIVED THE J&J VACCINE FOR COVID-19, SHE BELIEVES IT WAS IN MARCH OF 2021 OBSERVATION NOTICE DELIVERED, COPY SENT TO [facility] PT IS AWARE STR IS BEING RECOMMENDED, SHE HAS REQUESTED REFERRALS BE SENT TO [facility]. REFERRALS SENT CURRENT DC PLAN IS STR, FACILITY TBD TRANSPORT BSL VS CHAIR VAN
--- NOTE | 2022-02-19 12:12 | PM.NEUROCN ---
History of Present Illness Data of Consult Service Date: 02/19/22 Primary Care Provider: MD TIFFANIE Lundy Reason for consult: Falls 71 years old woman who apparently had fallen couple of times and was brought to hospital. She was a vague historian and stated that it might have happened because of Klonopin does change. Apparently she suffered from anxiety disorder and was taking clonazepam. She denied alcohol abuse or drug use. There was no speech or language difficulty under or any recent cold or flu-like illness Review of Systems Review of Systems: no recent fever chills cough cold or flu-like illness headache infection or loss of bowel bladder control PMFSH Past Medical History Medical History (Updated 02/19/22 @ 12:15 by Carlos Manuel Sanches MD) Anxiety Diabetes mellitus Family History Family History (Updated 02/18/22 @ 16:03 by Sia Greene NP) Other Cancer Coronary artery disease Diabetes mellitus Hypertension Surgical History Surgical History History of cholecystectomy Social History Social History Alcohol intake: never Patient Tobacco Use Status: Never used Tobacco Use of substances other than those prescribed or required for medical reasons: No Advance Directives: Yes Advance Directives Information Provided: Yes Advance Directives on File: No service: No Current occupational status: retired Meds Allergies Allergy/AdvReac Type Severity Reaction Status Date / Time No Known Allergies Allergy Unverified 08/18/20 16:05 [No Known Allergies*] Active Medications: Current Medications Acetaminophen (Acetaminophen 325 Mg Tablet) 650 mg PO Q6H PRN PRN Reason: Pain, Mild (Pain Scale 1-3) Aspirin (Aspirin Enteric Coated 81 Mg Tablet.) 81 mg PO DAILY [facility] Last Admin: 02/19/22 10:35 Dose: 81 mg Documented by: Carvedilol (Carvedilol 3.125 Mg Tablet) 3.125 mg PO BID [facility]; Protocol Last Admin: 02/19/22 10:35 Dose: 3.125 mg Documented by: Clonazepam (Clonazepam 0.5 Mg Tablet) 0.5 mg PO BID@0900,1200 [facility] Last Admin: 02/19/22 10:35 Dose: 0.5 mg Documented by: Clonazepam (Clonazepam 0.5 Mg Tablet) 0.5 mg PO DAILY PRN PRN Reason: Anxiety Clonazepam (Clonazepam 1 Mg Tablet) 1 mg PO BEDTIME [facility] Dextrose (Dextrose 50 % 25 Gm/50 Ml Vial) 25 gm IVPUSH Q15M PRN; Protocol PRN Reason: per Hypoglycemia Standing Ord. Escitalopram Oxalate (Escitalopram Oxalate 10 Mg Tablet) 10 mg PO DAILY [facility] Glucose (Glucose Gel 15 Gm Gel..Gram.) 15 gm PO Q15M PRN; Protocol PRN Reason: per Hypoglycemia Standing Ord. Hydroxyzine HCl (Hydroxyzine Hcl 50 Mg Tablet) 100 mg PO BEDTIME [facility] Insulin Human Lispro (Insulin Lispro 100 Unit/Ml 3 Ml Vial) 0 unit SUBCUT QIDACHS [facility]; Protocol Last Admin: 02/19/22 10:36 Dose: Not Given Documented by: Metformin HCl (Metformin Hcl 500 Mg Tablet) 500 mg PO BID [facility] Olanzapine (Olanzapine 5 Mg Tablet) 5 mg PO BEDTIME [facility] Ondansetron HCl (Ondansetron Hcl 4 Mg/2 Ml Vial) 4 mg IVPUSH Q8H PRN PRN Reason: Nausea and Vomiting Pharmacy Consult (Consult Rx Perform Med Rec) 1 each MISCELLANE ONCE PRN PRN Reason: Consult order Sodium Chloride (0.9 % Sodium Chloride Flush 3 Ml Syringe) [address] [facility] Last Admin: 02/19/22 10:36 Dose: Not Given Documented by: Zolpidem Tartrate (Zolpidem Tartrate 5 Mg Tablet) 5 mg PO BEDTIME [facility] Home Medications Medication Instructions Recorded Confirmed Last Taken Type aspirin 81 mg tablet,delayed 1 tab PO DAILY 02/18/22 02/18/22 02/17/22 History release carvedilol 3.125 mg tablet 1 tab PO BID 02/18/22 02/18/22 02/18/22 History clonazepam 0.5 mg tablet 0.5 mg PO BID@0900,1200 02/18/22 02/18/22 02/18/22 History clonazepam 0.5 mg tablet 0.5 mg PO DAILY PRN 02/18/22 02/18/22 02/17/22 History clonazepam 0.5 mg tablet 1 mg PO BEDTIME 02/18/22 02/18/22 02/17/22 History escitalopram oxalate 10 mg tablet 1 tab PO DAILY 02/18/22 02/18/22 02/18/22 History hydroxyzine pamoate 50 mg capsule 2 cap PO BEDTIME 02/18/22 02/18/22 02/17/22 History ibuprofen 200 mg tablet (Advil) 400 mg PO Q6H PRN 02/18/22 02/18/22 02/17/22 History metformin 500 mg tablet 1 tab PO BID 02/18/22 02/18/22 02/17/22 History olanzapine 5 mg tablet 1 tab PO QPM 02/18/22 02/18/22 02/17/22 History zolpidem 10 mg tablet 1 tab PO QPM 02/18/22 02/18/22 02/17/22 History Physical Exam Vital Signs: Vital Signs: Last Vital Signs Temp 98.4 F 02/19/22 10:06 Pulse 100 02/19/22 10:06 Resp 18 02/19/22 10:06 BP 133/54 L 02/19/22 10:06 Pulse Ox 99 02/19/22 10:06 BMI result Body Mass Index 27.3 Neuro: Other: she was alert and awake with normal spontaneity of speech fluency comprehension and vague affect. There was no nystagmus. Visual michel are full. Face was symmetrical. There was no significant tremor or asterixis. Moderate diffuse muscle atrophy was noted in legs and hands. Deep tendon reflexes were absent with flexor plantars. Results Labs CBC & Chem 7: 02/19/22 06:23 02/19/22 06:23 Labs: Short CBC 02/19/22 Range/Units 06:23 WBC 8.1 (4.8-10.8) X10*3/uL Hgb 13.2 (12.0-16.0) g/dl Hct 40.7 (37.0-47.0) % Plt Count 224 (160-400) X10*3/uL BMP 02/19/22 06:23 Sodium 138 Potassium 3.5 Chloride 103 Carbon Dioxide 24 BUN 15 Creatinine 0.69 Calcium 8.9 D Urine 02/18/22 02/19/22 Range/Units 14:03 11:07 Urine Color STRAW YELLOW Urine Appearance CLEAR CLOUDY Urine pH 5.5 6.0 (5.0-8.0) Ur Specific [place] <= 1.005 1.025 (1.005-1.025) Urine Protein NEG 1+ H (NEG-TRACE) MG/DL Urine Glucose (UA) NEG 500 H (NEG) MG/DL Noncontrast head CT and brain MRI were reviewed. No acute lesion was noted. Moderately severe diffuse atrophy was noted and mild to moderate chronic microvascular ischemic changes. Assessment and Plan (1) Multifactorial gait disorder: Status: Acute she has signs of chronic peripheral neuropathy, a vague affect, diagnosis of anxiety disorder with MRI of brain revealing moderately severe diffuse atrophy and some microvascular ischemic changes. There is no obvious acute pathology. For investigation, EMG nerve conduction study of legs can put more light into it. Otherwise I recommend PT OT, use of a walker, and checking her for serum immunofixation, B12, folate, thiamine, and Lyme disease. (2) Peripheral neuropathy: Status: Acute (3) Dementia: Status: Acute (4) Cerebral microvascular disease: Status: Acute Procedures Date of Service Date of Service: 02/19/22
[2022-02-19 12:15] LABS: UACC CULT YES
[2022-02-19 12:16] LABS: Bacteria Urine 3+ /LPF; Mucus Urine 1+ /LPF; Squamous Epithelial Cell Urine 1+ /LPF
[2022-02-19] MEDS: Escitalopram Oxalate 10 MG TABLET PO (13:02)
[2022-02-19] MEDS: Acetaminophen 325 MG TABLET 650 MG PO (13:02)
--- NOTE | 2022-02-19 13:04 | PC.NURSE ---
Pt A&Ox4, flat affect, pain 7/10 to head only after 1mg Klonopin, per pt she takes 0.5mg at home. NSR on monitor, LCA, urine dark and malodorous, UA sent, call nielson within reach. Will continue to moniotr.
--- NOTE | 2022-02-19 13:33 | P.PNIM_ITS ---
Subjective Subjective Date of Service: 02/19/22 Review of Systems Follow up Falls and weakness Feeling better but still very weak Physical Exam Vital Signs: Vital Signs: Last Vital Signs Temp 98.4 F 02/19/22 10:06 Pulse 100 02/19/22 10:06 Resp 18 02/19/22 10:06 BP 133/54 L 02/19/22 10:06 Pulse Ox 99 02/19/22 10:06 BMI result Body Mass Index 27.3 Appearing in no acute distress lung sounds are clear to auscultation heart regular rate rhythm, clear S1, S2 positive bowel sounds, abdomen is soft, nontender neuro patient is alert x3, no focal deficits Objective Data Active Medications Acetaminophen (Acetaminophen 325 Mg Tablet) 650 mg PO Q6H PRN PRN Reason: Pain, Mild (Pain Scale 1-3) Last Admin: 02/19/22 13:02 Dose: 650 mg Documented by: VICKI Aspirin (Aspirin Enteric Coated 81 Mg Tablet.) 81 mg PO DAILY [facility] Last Admin: 02/19/22 10:35 Dose: 81 mg Documented by: VICKI Carvedilol (Carvedilol 3.125 Mg Tablet) 3.125 mg PO BID [facility]; Protocol Last Admin: 02/19/22 10:35 Dose: 3.125 mg Documented by: VICKI Clonazepam (Clonazepam 0.5 Mg Tablet) 0.5 mg PO BID@0900,1200 [facility] Last Admin: 02/19/22 10:35 Dose: 0.5 mg Documented by: NICCI-JIGAR Clonazepam (Clonazepam 0.5 Mg Tablet) 0.5 mg PO DAILY PRN PRN Reason: Anxiety Clonazepam (Clonazepam 1 Mg Tablet) 1 mg PO BEDTIME [facility] Dextrose (Dextrose 50 % 25 Gm/50 Ml Vial) 25 gm IVPUSH Q15M PRN; Protocol PRN Reason: per Hypoglycemia Standing Ord. Escitalopram Oxalate (Escitalopram Oxalate 10 Mg Tablet) 10 mg PO DAILY [facility] Last Admin: 02/19/22 13:02 Dose: 10 mg Documented by: VICKI Glucose (Glucose Gel 15 Gm Gel..Gram.) 15 gm PO Q15M PRN; Protocol PRN Reason: per Hypoglycemia Standing Ord. Hydroxyzine HCl (Hydroxyzine Hcl 50 Mg Tablet) 100 mg PO BEDTIME [facility] Insulin Human Lispro (Insulin Lispro 100 Unit/Ml 3 Ml Vial) 0 unit SUBCUT QIDACHS [facility]; Protocol Last Admin: 02/19/22 10:36 Dose: Not Given Documented by: VICKI Non-Admin Reason: No Insulin Coverage Metformin HCl (Metformin Hcl 500 Mg Tablet) 500 mg PO BID [facility] Olanzapine (Olanzapine 5 Mg Tablet) 5 mg PO BEDTIME [facility] Ondansetron HCl (Ondansetron Hcl 4 Mg/2 Ml Vial) 4 mg IVPUSH Q8H PRN PRN Reason: Nausea and Vomiting Pharmacy Consult (Consult Rx Perform Med Rec) 1 each MISCELLANE ONCE PRN PRN Reason: Consult order Sodium Chloride (0.9 % Sodium Chloride Flush 3 Ml Syringe) 3 ml IVFLUSH QSHIFT [facility] Last Admin: 02/19/22 10:36 Dose: Not Given Documented by: VICKI Non-Admin Reason: IV Running Zolpidem Tartrate (Zolpidem Tartrate 5 Mg Tablet) 5 mg PO BEDTIME [facility] Labs CBC & Chem 7: 02/19/22 06:23 02/19/22 06:23 Labs: Laboratory Results - last 24 hr 02/18/22 02/18/22 02/18/22 14:03 16:07 16:39 MCV MCH MCHC RDW Plt Count MPV Immature Gran % (Auto) Neut % (Auto) Lymph % (Auto) [place] % (Auto) Eos % (Auto) Baso % (Auto) Lymph # (Auto) [place] # (Auto) Eos # (Auto) Baso # (Auto) Abs Immat Gran (auto) Absolute Neuts (auto) Absolute Nucleated RBC Nucleated RBC % (auto) Anion Gap Estim Creat Clear Calc Estimated GFR POC Glucose 129 H Random Glucose Calcium Urine Color STRAW Urine Appearance CLEAR Urine pH 5.5 Ur Specific [place] <= 1.005 Urine Protein NEG Urine Glucose (UA) NEG Urine Ketones 5 Urine Blood TRACE Urine Nitrite NEG Ur Leukocyte Esterase NEG Urine RBC 0-2 Urine WBC 0 Ur Squamous Epith Cells TRACE Urine Bacteria NONE Urine Mucus COVID-19 ([facility]) Negative COVID-19 Clin Com See Note 02/18/22 02/19/22 02/19/22 22:46 06:23 06:23 MCV 90.2 MCH 29.3 MCHC 32.4 RDW 13.5 Plt Count 224 MPV 10.4 Immature Gran % (Auto) 0.2 Neut % (Auto) 68.0 Lymph % (Auto) 17.0 L [place] % (Auto) 11.7 H Eos % (Auto) 2.6 Baso % (Auto) 0.5 Lymph # (Auto) 1.4 [place] # (Auto) 1.0 Eos # (Auto) 0.2 Baso # (Auto) 0.0 Abs Immat Gran (auto) 0.02 Absolute Neuts (auto) 5.5 Absolute Nucleated RBC 0.000 Nucleated RBC % (auto) 0.0 Anion Gap 15 Estim Creat Clear Calc 79.3 Estimated GFR > 60 POC Glucose 206 H Random Glucose 113 Calcium 8.9 D Urine Color Urine Appearance Urine pH Ur Specific [place] Urine Protein Urine Glucose (UA) Urine Ketones Urine Blood Urine Nitrite Ur Leukocyte Esterase Urine RBC Urine WBC Ur Squamous Epith Cells Urine Bacteria Urine Mucus COVID-19 (OZIEL) COVID-19 [facility] Com 02/19/22 02/19/22 07:53 11:07 MCV MCH MCHC RDW Plt Count MPV Immature Gran % (Auto) Neut % (Auto) Lymph % (Auto) [place] % (Auto) Eos % (Auto) Baso % (Auto) Lymph # (Auto) [place] # (Auto) Eos # (Auto) Baso # (Auto) Abs Immat Gran (auto) Absolute Neuts (auto) Absolute Nucleated RBC Nucleated RBC % (auto) Anion Gap Estim Creat Clear Calc Estimated GFR POC Glucose 136 H Random Glucose Calcium Urine Color YELLOW Urine Appearance CLOUDY Urine pH 6.0 Ur Specific [place] 1.025 Urine Protein 1+ H Urine Glucose (UA) 500 H Urine Ketones 15 Urine Blood 1+ H Urine Nitrite NEG Ur Leukocyte Esterase NEG Urine RBC 5-9 H Urine WBC 10-14 H Ur Squamous Epith Cells 1+ Urine Bacteria 3+ Urine Mucus 1+ COVID-19 ([facility]ZIEL) COVID-19 Clin Com Assessment and Plan (1) Falls: Status: Acute Plan 71-year-old woman admitted the ER after falls feeling off balance.? Placed on observation Fall with significant weakness. No clear etiology Seen by Physical therapy with recommendation for short-term rehab Seen by Neurology, MRI negative for acute stroke however other differentials include neuropathy, outpatient EMG nerve conduction no arrhythmia on telemetry dizziness has subsided Will check B12, folate, thiamine and Lyme Diabetes mellitus Signs scale, ADA diet Mental health Continue home medications including beta-chapincito DVT prophylaxis with Attending Dr. Carbone Full code? Disposition plan for short-term rehab, authorization and progress Quality Stroke Does the patient have a stroke diagnosis?: No VTE Prior VTE?: No VTE Risk Level:: Medical - moderate - high VTE Device Contraindication: N/A - Device Ordered VTE Drug Contraindication: Treatment Not Indicated
[2022-02-19 13:37] LABS: Glucose, Whole Blood 193 mg/dL (60-115)
[2022-02-19] MEDS: Insulin Lispro 100 UNIT/ML 3 ML VIAL SUBCUT (14:38)
[2022-02-19 15:14] LABS: Folate 16.8 ng/mL (> or = 4.0); Vitamin B12 489 pg/mL (200-900)
--- NOTE | 2022-02-19 15:58 | PM.DS ---
DS: Providers Provider Date of Service: 02/19/22 Date of admission: 02/18/22 16:28 Primary care physician: Fatou García MD Consults: 02/19/22 08:25 Consult to Neurology Routine Consulting Provider: [facility] Reason for consultation: Falls, unsteady Has provider been notified: No Attending physician on discharge: Raymond Carbone Discharging clinician: Sia Greene DS: Diagnosis Discharge Diagnosis (1) Falls: Status: Acute DS: Summary Hospital Course Hospital Course: 71 year old women? presented to the ER after 2 falls at home.? She had a fall last night and then she had a fall overnight around midnight and was on the floor up until the morning until EMS was contacted again by her 100 2-year-old mother.? Patient had complaints of neck and back pain.? She had multiple diagnostic imaging studies including, head CT negative for acute abnormality, cervical spine CT with no acute fracture, dislocation or subluxation, abdominal CT showed distended urinary bladder with no otherwise acute abnormality other than mild constipation , chest x-ray was negative for any consolidation or effusion, and left knee x-ray was negative for acute fracture.? All of her labs are within acceptable limits, vital signs stable. patient denied any loss of consciousness, dizziness, nausea, vomiting, diarrhea, chest pain, shortness of breath.? She reported that she felt weak and felt like her legs went from under her.? She reports prior to this she had not had any falls and has been independent taking care of her elderly mother.? She did receive some IV fluids in the ER.? Plan is to place on observation for fall and rule out posterior stroke versus other abnormality.? Fall with significant weakness. No clear etiology . No infectious source, MRI negative for stroke, seen by Neurology with recommendation for outpatient EMG to assess for neuropathy. there was a question whether this was medication related as patient is on antianxiolytic and antidepressant medications however she denies this. She was seen by Physical therapy recommended short-term rehab. No arrhythmia noted on telemetry and her dizziness did subside significantly. B12, folate and Lyme were checked and are pending. at this time patient is unsafe to be discharged home and physical therapy has recommended short-term rehab to maximize function and safety at home. Diabetes mellitus . Treating with sliding scale and diabetic diet. She can continue her home medications. Mental health. Continue home medications including beta-chapincito She has pending labs that were drawn at [facility], including B12, folate and Lyme disease her primary care provider should follow up with these results. Time Spent with Patient Time attestation: Total time spent providing and/or coordinating discharge services: Discharge coordination time: Greater than 30 minutes Quality: Stroke Does the patient have a stroke diagnosis?: No Physical Exam Vital Signs: Vital Signs: Last Vital Signs Temp 98.4 F 02/19/22 10:06 Pulse 100 02/19/22 10:06 Resp 18 02/19/22 10:06 BP 133/54 L 02/19/22 10:06 Pulse Ox 99 02/19/22 10:06 BMI result Body Mass Index 27.3 Appearing in no acute distress head is normocephalic atraumatic eyes pupils are PERRLA sclera is anicteric mouth throat mucous membranes are intact and moist neck is supple no lymphadenopathy, no JVD noted lung sounds are clear to auscultation heart regular rate rhythm, clear S1, S2 positive bowel sounds, abdomen is soft, nontender neuro patient is alert , significant balance deficit without unilateral weakness DS: Data Data Completed and Pending Labs on day of discharge: Laboratory Results - last 24 hr 02/18/22 02/18/22 02/18/22 16:07 16:39 22:46 WBC RBC Hgb Hct MCV MCH MCHC RDW Plt Count MPV Immature Gran % (Auto) Neut % (Auto) Lymph % (Auto) [place] % (Auto) Eos % (Auto) Baso % (Auto) Lymph # (Auto) [place] # (Auto) Eos # (Auto) Baso # (Auto) Abs Immat Gran (auto) Absolute Neuts (auto) Absolute Nucleated RBC Nucleated RBC % (auto) Sodium Potassium Chloride Carbon Dioxide Anion Gap BUN Creatinine Estim Creat Clear Calc Estimated GFR POC Glucose 129 H 206 H Random Glucose Calcium Vitamin B12 Folate Urine Color Urine Appearance Urine pH Ur Specific [place] Urine Protein Urine Glucose (UA) Urine Ketones Urine Blood Urine Nitrite Ur Leukocyte Esterase Urine RBC Urine WBC Ur Squamous Epith Cells Urine Bacteria Urine Mucus COVID-19 (OZIEL) Negative COVID-19 Clin Com See Note 02/19/22 02/19/22 02/19/22 06:23 06:23 07:53 WBC 8.1 RBC 4.51 Hgb 13.2 Hct 40.7 MCV 90.2 MCH 29.3 MCHC 32.4 RDW 13.5 Plt Count 224 MPV 10.4 Immature Gran % (Auto) 0.2 Neut % (Auto) 68.0 Lymph % (Auto) 17.0 L [place] % (Auto) 11.7 H Eos % (Auto) 2.6 Baso % (Auto) 0.5 Lymph # (Auto) 1.4 [place] # (Auto) 1.0 Eos # (Auto) 0.2 Baso # (Auto) 0.0 Abs Immat Gran (auto) 0.02 Absolute Neuts (auto) 5.5 Absolute Nucleated RBC 0.000 Nucleated RBC % (auto) 0.0 Sodium 138 Potassium 3.5 Chloride 103 Carbon Dioxide 24 Anion Gap 15 BUN 15 Creatinine 0.69 Estim Creat Clear Calc 79.3 Estimated GFR > 60 POC Glucose 136 H Random Glucose 113 Calcium 8.9 D Vitamin B12 Folate Urine Color Urine Appearance Urine pH Ur Specific [place] Urine Protein Urine Glucose (UA) Urine Ketones Urine Blood Urine Nitrite Ur Leukocyte Esterase Urine RBC Urine WBC Ur Squamous Epith Cells Urine Bacteria Urine Mucus COVID-19 (OZIEL) COVID-[employer] 02/19/22 02/19/22 02/19/22 11:07 13:34 13:56 WBC RBC Hgb Hct MCV MCH MCHC RDW Plt Count MPV Immature Gran % (Auto) Neut % (Auto) Lymph % (Auto) [place] % (Auto) Eos % (Auto) Baso % (Auto) Lymph # (Auto) [place] # (Auto) Eos # (Auto) Baso # (Auto) Abs Immat Gran (auto) Absolute Neuts (auto) Absolute Nucleated RBC Nucleated RBC % (auto) Sodium Potassium Chloride Carbon Dioxide Anion Gap BUN Creatinine Estim Creat Clear Calc Estimated GFR POC Glucose 193 H Random Glucose Calcium Vitamin B12 489 Folate 16.8 Urine Color YELLOW Urine Appearance CLOUDY Urine pH 6.0 Ur Specific [place] 1.025 Urine Protein 1+ H Urine Glucose (UA) 500 H Urine Ketones 15 Urine Blood 1+ H Urine Nitrite NEG Ur Leukocyte Esterase NEG Urine RBC 5-9 H Urine WBC 10-14 H Ur Squamous Epith Cells 1+ Urine Bacteria 3+ Urine Mucus 1+ COVID-19 (OZIEL) COVID-[employer] Discharge Plan Discharge Anticipated Discharge Date/Time: 02/19/22 15:53 Patient Disposition: Xfer Inpatient Rehab Fac Discharge Diagnosis: Falls Unsteady balance Referrals: [facility] [Outside] - 1 Week Fatou García MD [Primary Care Provider] - 1 Week Discharge Medications: Continued metformin 500 mg tablet 1 tab PO BID 0RF clonazepam 0.5 mg tablet 0.5 mg PO BID@0900,1200 0RF clonazepam 0.5 mg tablet 0.5 mg PO DAILY PRN (Reason: Anxiety) 0RF clonazepam 0.5 mg tablet 1 mg PO BEDTIME 0RF olanzapine 5 mg tablet 1 tab PO QPM 0RF hydroxyzine pamoate 50 mg capsule 2 cap PO BEDTIME 0RF aspirin 81 mg tablet,delayed release (DR/EC) 1 tab PO DAILY 0RF carvedilol 3.125 mg tablet 1 tab PO BID 0RF zolpidem 10 mg tablet 1 tab PO QPM 0RF escitalopram oxalate 10 mg tablet 1 tab PO DAILY 0RF ibuprofen [Advil] 200 mg Tablet 400 mg PO Q6H PRN (Reason: Pain) 0RF Discharge Orders: Discharge Order (Routine); Ordered 02/19/22 Ordered By: Sia Greene Diet: advance to usual diet Activity on Discharge: As tolerated Stand Alone Forms: Patient Portal Discharge page Care Plan Goals: resolution of symptoms Health Concerns: Falls Unsteady balance Plan of Treatment: You will be transferred to short-term rehab Continue medications as prescribed You have lab work that is pending from [facility] including B12, folate and Lyme. Your primary care provider should follow up with this Assessment: See discharge summary
[2022-02-19 18:30] VITALS: BP 118/51; PULSE 76; RESP 19; O2SAT 100
[2022-02-19 18:38] LABS: Glucose, Whole Blood 157 mg/dL (60-115)
[2022-02-19 22:12] LABS: Glucose, Whole Blood 185 mg/dL (60-115)
--- NOTE | 2022-02-20 01:24 | PC.NURSE ---
Pt A&OX3, flat affect. Cooperative with care. Speech is clear and appropriate. LS-CTA. No cough and no sob. BS+. Pt denies N/V/D. PP+, no edema. Pt denies pain. +LE weakness. Bed alarm on for safety. Pt transferred to [facility] around 22:08 via stretcher with [facility]. Report previously given. IV removed and paperwork as well as patients own meds were sent with patient.
[2022-02-21 05:06] LABS: Lyme Abs Screen <0.90 index
== END 2022-02-19 19:30 ==
LOC: HO.ED 15:50 → HO.EDOVER 16:33
PROVIDERS: Admitting Provider Nurse Practitioner Acute Care; Emergency Provider Emergency Medicine Emergency Medical Services; PCP Internal Medicine; Visit Provider Nurse Practitioner Acute Care
DX: R42 Dizziness and giddiness (principal); R26.89 Other abnormalities of gait and mobility; M54.9 Dorsalgia, unspecified; M54.2 Cervicalgia; G62.9 Polyneuropathy, unspecified; F03.90 Unspecified dementia, unspecified severity, without behavioral disturbance, psychotic disturbance, mood disturbance, and anxiety; I67.89 Other cerebrovascular disease; J02.9 Acute pharyngitis, unspecified; E11.9 Type 2 diabetes mellitus without complications; N32.89 Other specified disorders of bladder; N39.0 Urinary tract infection, site not specified; B96.20 Unspecified Escherichia coli [E. coli] as the cause of diseases classified elsewhere; M76.52 Patellar tendinitis, left knee; F41.9 Anxiety disorder, unspecified; Z20.822 Contact with and (suspected) exposure to COVID-19; Z16.11 Resistance to penicillins; Z16.29 Resistance to other single specified antibiotic; Z91.81 History of falling; Z90.49 Acquired absence of other specified parts of digestive tract; Z79.84 Long term (current) use of oral hypoglycemic drugs; Z79.899 Other long term (current) drug therapy
CPT/HCPCS: 36415; 70450; 70551; 71045; 72125; 73562; 74177; 80048; 80076; 81001; 82077; 82550; 82607; 82746; 82803; 82947; 83690; 84484; 85025; 86617; 86618; 87086; 87088; 87186; 87635; 87651; 93005; 96374; 96375; 97162; 99219; 99285; Q9967

== ENCOUNTER 2022-09-25 23:37 | Emergency (ER) | payer MEDICARE, SELFPAY ==
--- NOTE | ~2022-09-25 | XR_ITS ---
EXAMINATION: XR CHEST CLINICAL INFORMATION: CVA COMPARISON: 02/18/2022 TECHNIQUE: Frontal view of the chest was obtained. FINDINGS: Cardiac leads overlie the chest. The lungs are well expanded. There is no focal consolidation, edema, or effusion. No pneumothorax. The cardiomediastinal silhouette is within normal limits. No acute osseous abnormality. Mild degenerative changes of the spine. XR/XR chest 1V IMPRESSION: No acute pulmonary disease.
--- NOTE | ~2022-09-25 | CT_ITS ---
EXAMINATION: CT HEAD WITHOUT CONTRAST CLINICAL INFORMATION: Left-sided weakness COMPARISON: 02/18/2022 TECHNIQUE: Contiguous axial imaging was performed from the skull base to vertex without intravenous contrast. This CT examination was performed using dose optimization techniques as appropriate, variously including the following: * Automated exposure control * Adjustment of mA and/or kV according to patient size (this includes techniques or standardized protocols for targeted exams where dose is matched to indication/reason for exam; i.e. extremities or head) Use of iterative reconstruction technique DLP: 727 mGy-cm. FINDINGS: There is no evidence of acute intracranial hemorrhage or territorial infarction. No abnormal mass effect or midline shift is seen. Vazquez to white matter differentiation is well preserved. No extra-axial fluid collections are identified. No hydrocephalus. Proportional prominence of the ventricles and sulcal spaces is consistent with mild volume loss. Patchy periventricular and deep white matter hypoattenuation is consistent with mild small vessel ischemic changes. The osseous structures and soft tissues are normal. The mastoid air cells and visualized portions of the paranasal sinuses are well aerated. CT/CT head for stroke IMPRESSION: No acute intracranial pathology. This critical result was discussed with Didier Deluna MD by telephone at 09/25/2022 11:51 PM and it was ascertained that the content and urgency of the report was understood at the time of direct communication.
--- NOTE | ~2022-09-25 | CT_ITS ---
EXAMINATION: CTA OF THE HEAD/NECK CLINICAL INFORMATION: Left-sided weakness COMPARISON: Head CT from earlier this evening. TECHNIQUE: A routine non contrast head CT was performed earlier in the evening. This was followed by a 70 mL bolus of Omnipaque 350. Subsequent multidetector helical imaging was performed of the head and neck. Delayed post contrast imaging was also performed through the head. Multiplanar reformats and MIP were also obtained. Internal carotid artery stenoses are assessed in accordance with NASCET criteria unless otherwise indicated. This CT examination was performed using dose optimization techniques as appropriate, variously including the following: *Automated exposure control *Adjustment of mA and/or kV according to patient size (this includes techniques or standardized protocols for targeted exams where dose is matched to indication/reason for exam; i.e. extremities or head) *Use of iterative reconstruction technique DLP: 1551 mGy-cm. FINDINGS: CT HEAD: There is no evidence of acute intracranial hemorrhage or territorial infarction. No abnormal mass effect or midline shift is seen. Vazquez to white matter differentiation is well preserved. No extra-axial fluid collections are identified. No suspicious leptomeningeal or parenchymal enhancement on the post-contrast images. No hydrocephalus. Proportional prominence of the ventricles and sulcal spaces is consistent with mild volume loss. Patchy periventricular and deep white matter hypoattenuation is consistent with mild small vessel ischemic changes. The osseous structures and soft tissues are normal. The mastoid air cells and visualized portions of the paranasal sinuses are well aerated. CTA NECK: The aortic arch is of normal caliber and the origins of the great vessels are patent without evidence of significant stenosis. The cervical portion of the vertebral arteries are patent bilaterally. No luminal irregularities in the common carotid arteries and the carotid bifurcations are patent bilaterally. The cervical portion of the internal carotid arteries are of normal caliber. The laryngeal structures and pharyngeal mucosal spaces are unremarkable. The oral cavity appears normal. The parotid and submandibular glands are normal. No pathologically enlarged lymph nodes. The thyroid gland is heterogeneous with multiple nodules throughout. The largest measures 2 cm. The lung apices are clear without evidence of pneumothorax. Spinal alignment is maintained. Mild cervical spondylosis is noted. CTA HEAD: The intradural portion of the vertebral arteries are of normal caliber. The basilar, superior cerebellar, and posterior communicating arteries are patent. The posterior, middle, and anterior cerebral arteries are of normal caliber without evidence of significant luminal irregularity. No definite intracranial aneurysms. CT/CT angio head neck stroke IMPRESSION: 1. No acute vascular abnormality. No large vessel occlusion or flow-limiting stenosis. 2. No acute intracranial finding. 3. Heterogeneous thyroid gland with multiple nodules. This can be evaluated with nonemergent thyroid ultrasound. This critical result was discussed with Didier Deluna MD by telephone at 09/26/2022 12:29 AM and it was ascertained that the content and urgency of the report was understood at the time of direct communication.
--- NOTE | 2022-09-25 23:40 | ECG_ITS ---
Test Reason : STROKE Blood Pressure : / mmHG Vent. Rate : 098 BPM Atrial Rate : 098 BPM P-R Int : 184 ms QRS Dur : 070 ms QT Int : 354 ms P-R-T Axes : 063 -12 033 degrees QTc Int : 451 ms Normal sinus rhythm RSR' or QR pattern in V1 suggests right ventricular conduction delay Otherwise normal ECG When compared with ECG of 18-FEB-2022 09:24, Nonspecific T wave abnormality no longer evident in Anterior leads Referred By: Didier Deluna Electronically Signed By:REGULO GANDHI MD
[2022-09-25 23:42] VITALS: BP 123/68; PULSE 80; O2SAT 98; BMI 26.6
--- NOTE | 2022-09-25 23:44 | ED_ITS ---
HPI - Neuro Symptoms/Deficit General Chief Complaint: Stroke Stated Complaint: LT SIDED WEAKNESS,SLURRED SPEECH ONSET 1700 Time Seen by Provider: 09/25/22 23:40 Source: patient and EMS Mode of arrival: EMS Limitations: no limitations History of Present Illness HPI Narrative: Patient with history of anxiety on Klonopin, diabetes, dementia, chronic peripheral neuropathy was here on 02/20 were repeated falls segment to neuropathy and Klonopin use MRI was negative for acute ischemia brought by EMS for weakness preoperative patient had COVID shot today came home at 17:00 was sitting on the chair slipped and had a mechanical fall was able to get up went to the bed late on for some time at 21:30 when she tried to get up she felt very weak generalized weakness and slid down from the bed to the floor when EMS scott sanchez did notice left side was weaker than the right side by the time paramedics no significant weakness patient denied focal weakness saying that she was feeling weak overall and could not use her left hand much because the COVID shot she got in the left arm. No fever no chills Related Data Home Medications Medication Instructions Recorded Confirmed aspirin 81 mg tablet,delayed 1 tab PO DAILY 02/18/22 02/18/22 release carvedilol 3.125 mg tablet 1 tab PO BID 02/18/22 02/18/22 clonazepam 0.5 mg tablet 0.5 mg PO BID@0900,1200 02/18/22 02/18/22 clonazepam 0.5 mg tablet 0.5 mg PO DAILY PRN Anxiety 02/18/22 02/18/22 clonazepam 0.5 mg tablet 1 mg PO BEDTIME 02/18/22 02/18/22 escitalopram oxalate 10 mg tablet 1 tab PO DAILY 02/18/22 02/18/22 hydroxyzine pamoate 50 mg capsule 2 cap PO BEDTIME 02/18/22 02/18/22 ibuprofen 200 mg tablet (Advil) 400 mg PO Q6H PRN Pain 02/18/22 02/18/22 metformin 500 mg tablet 1 tab PO BID 02/18/22 02/18/22 olanzapine 5 mg tablet 1 tab PO QPM 02/18/22 02/18/22 zolpidem 10 mg tablet 1 tab PO QPM 02/18/22 02/18/22 Allergies Allergy/AdvReac Type Severity Reaction Status Date / Time No Known Allergies Allergy Unverified 08/18/20 16:05 [No Known Allergies*] Review of Systems Review of Systems: Yes all other systems are reviewed and are negative [facility] Past Medical History Medical History Anxiety Cerebral microvascular disease Dementia Diabetes mellitus Peripheral neuropathy Surgical History History of cholecystectomy Family History Family History Other Cancer Coronary artery disease Diabetes mellitus Hypertension Social History Social History Alcohol intake: never Patient Tobacco Use Status: Never used Tobacco Use of substances other than those prescribed or required for medical reasons: No Advance Directives: Yes Advance Directives on File: Yes Advance Directives Date on File: 02/19/22 service: No Current occupational status: retired Physical Exam Vital Signs: Vital Signs: Last Vital Signs Temp 98.7 F 09/26/22 05:31 Pulse 88 09/26/22 05:31 Resp 17 09/26/22 05:31 BP 143/63 H 09/26/22 05:31 Pulse Ox 94 09/26/22 05:31 O2 Del Method 09/26/22 05:31 BMI result Body Mass Index 29.0 Appearance: Alert. Oriented X3. No acute distress. Eyes: PERRLA, No Nystagmus ENT: Pharynx normal. Oral Mucosa moist Neck: Normal inspection. Neck supple. CVS: Normal heart rate and rhythm. Pulses normal. Respiratory: No respiratory distress. Equal air entry bilateral, no wheezing/rales/rhonchi Abdomen: Soft and nontender. Bowel sounds are present, no mass palpable, no CVA tenderness Skin: Skin warm and dry. Normal skin color. Normal skin turgor. Extremities: No lower extremity edema. No calf tenderness Neuro: Oriented X 3. No motor deficit. No sensory deficit.No cerebellar signs , cranial nerves II-XII intact MDM - Neuro Symptoms/Deficit MDM Narrative Medical decision making narrative: 05:00 Patient has similar history in the past with weakness and falls with workup negative today , CT, CTA negative for CVA patient is still feeling weak and exhausted difficulty in walking will get PT OT consult case management for placement. Medical Records Attestation: I reviewed the patient's medical records. Lab Data Attestation: I reviewed the patient's lab results. Result diagrams: 09/26/22 00:18 09/26/22 00:18 Labs: Lab Results 09/25/22 09/25/22 09/26/22 Range/Units 23:40 23:41 00:18 WBC 9.2 (4.8-10.8) X10*3/uL RBC 4.57 (4.20-5.50) X10*6/uL Hgb 13.2 (12.0-16.0) g/dl Hct 39.9 (37.0-47.0) % MCV 87.3 (80.0-98.0) fL MCH 28.9 (27.0-33.0) pg MCHC 33.1 (31.0-35.0) g/dl RDW 13.4 (11.0-16.0) % Plt Count 215 (160-400) X10*3/uL MPV 10.1 (9.4-12.3) fL Immature Gran % (Auto) 0.3 (0.0-0.4) % Neut % (Auto) 82.6 H (45-73) % Lymph % (Auto) 9.6 L (20-40) % [place] % (Auto) 6.1 (2-11) % Eos % (Auto) 1.2 (0-4) % Baso % (Auto) 0.2 (0-2) % Lymph # (Auto) 0.9 L (1.2-4.9) X10*3/uL [place] # (Auto) 0.6 (0.1-1.2) X10*3/uL Eos # (Auto) 0.1 (0.0-0.4) X10*3/uL Baso # (Auto) 0.0 (0.0-0.2) X10*3/uL Abs Immat Gran (auto) 0.03 (0.00-0.03) X10*3/uL Absolute Neuts (auto) 7.6 (2.0-8.3) x10*3/uL Absolute Nucleated RBC 0.000 (0.0-0.012) X10*3/uL Nucleated RBC % (auto) 0.0 (0.0-0.2) /100WBC PT (10.0-13.1) SEC Whole Blood PT 12.1 (11.1-13.5) sec INR (0.9-1.1) Whole Blood INR 1.0 (0.9-1.1) Sodium (135-145) mmol/L Potassium (3.3-5.1) mmol/L Chloride (96-108) mmol/L Carbon Dioxide (22-29) mmol/L Anion Gap (12-20) BUN (9-16) mg/dL Creatinine (0.5-1.4) mg/dL Estim Creat Clear Calc Estimated GFR POC Glucose 147 H (60-115) mg/dL Random Glucose (60-115) mg/dL Lactic Acid (0.5-2.0) mmol/L Calcium (8.4-10.2) mg/dL Troponin I High Sens (<3.5-17.0) ng/L Hold Red Top Urine Color Urine Appearance Urine pH (5.0-9.0) Ur Specific [place] (1.005-1.025) Urine Protein (Neg-Trace) mg/dL Urine Glucose (UA) (Negative) mg/dL Urine Ketones (Negative) mg/dL Urine Blood (Negative) Urine Nitrite (Negative) Ur Leukocyte Esterase (Negative) COVID-19 (OZIEL) (Negative) COVID-19 Clin Com 09/26/22 09/26/22 09/26/22 Range/Units 00:18 00:18 00:18 WBC (4.8-10.8) X10*3/uL RBC (4.20-5.50) X10*6/uL Hgb (12.0-16.0) g/dl Hct (37.0-47.0) % MCV (80.0-98.0) fL MCH (27.0-33.0) pg MCHC (31.0-35.0) g/dl RDW (11.0-16.0) % Plt Count (160-400) X10*3/uL MPV (9.4-12.3) fL Immature Gran % (Auto) (0.0-0.4) % Neut % (Auto) (45-73) % Lymph % (Auto) (20-40) % [place] % (Auto) (2-11) % Eos % (Auto) (0-4) % Baso % (Auto) (0-2) % Lymph # (Auto) (1.2-4.9) X10*3/uL [place] # (Auto) (0.1-1.2) X10*3/uL Eos # (Auto) (0.0-0.4) X10*3/uL Baso # (Auto) (0.0-0.2) X10*3/uL Abs Immat Gran (auto) (0.00-0.03) X10*3/uL Absolute Neuts (auto) (2.0-8.3) x10*3/uL Absolute Nucleated RBC (0.0-0.012) X10*3/uL Nucleated RBC % (auto) (0.0-0.2) /100WBC PT 10.9 (10.0-13.1) SEC Whole Blood PT (11.1-13.5) sec INR 1.0 (0.9-1.1) Whole Blood INR (0.9-1.1) Sodium 137 (135-145) mmol/L Potassium 4.1 (3.3-5.1) mmol/L Chloride 99 (96-108) mmol/L Carbon Dioxide 26 (22-29) mmol/L Anion Gap 16 (12-20) BUN 18 H (9-16) mg/dL Creatinine 0.82 (0.5-1.4) mg/dL Estim Creat Clear Calc 68.7 Estimated GFR > 60 POC Glucose (60-115) mg/dL Random Glucose 145 H (60-115) mg/dL Lactic Acid (0.5-2.0) mmol/L Calcium 9.7 D (8.4-10.2) mg/dL Troponin I High Sens < 3.5 (<3.5-17.0) ng/L Hold Red Top Urine Color Urine Appearance Urine pH (5.0-9.0) Ur Specific [place] (1.005-1.025) Urine Protein (Neg-Trace) mg/dL Urine Glucose (UA) (Negative) mg/dL Urine Ketones (Negative) mg/dL Urine Blood (Negative) Urine Nitrite (Negative) Ur Leukocyte Esterase (Negative) COVID-19 (OZIEL) (Negative) COVID-19 Clin Com 09/26/22 09/26/22 09/26/22 Range/Units 00:18 00:34 03:39 WBC (4.8-10.8) X10*3/uL RBC (4.20-5.50) X10*6/uL Hgb (12.0-16.0) g/dl Hct (37.0-47.0) % MCV (80.0-98.0) fL MCH (27.0-33.0) pg MCHC (31.0-35.0) g/dl RDW (11.0-16.0) % Plt Count (160-400) X10*3/uL MPV (9.4-12.3) fL Immature Gran % (Auto) (0.0-0.4) % Neut % (Auto) (45-73) % Lymph % (Auto) (20-40) % [place] % (Auto) (2-11) % Eos % (Auto) (0-4) % Baso % (Auto) (0-2) % Lymph # (Auto) (1.2-4.9) X10*3/uL [place] # (Auto) (0.1-1.2) X10*3/uL Eos # (Auto) (0.0-0.4) X10*3/uL Baso # (Auto) (0.0-0.2) X10*3/uL Abs Immat Gran (auto) (0.00-0.03) X10*3/uL Absolute Neuts (auto) (2.0-8.3) x10*3/uL Absolute Nucleated RBC (0.0-0.012) X10*3/uL Nucleated RBC % (auto) (0.0-0.2) /100WBC PT (10.0-13.1) SEC Whole Blood PT (11.1-13.5) sec INR (0.9-1.1) Whole Blood INR (0.9-1.1) Sodium (135-145) mmol/L Potassium (3.3-5.1) mmol/L Chloride (96-108) mmol/L Carbon Dioxide (22-29) mmol/L Anion Gap (12-20) BUN (9-16) mg/dL Creatinine (0.5-1.4) mg/dL Estim Creat Clear Calc Estimated GFR POC Glucose (60-115) mg/dL Random Glucose (60-115) mg/dL Lactic Acid 1.1 (0.5-2.0) mmol/L Calcium (8.4-10.2) mg/dL Troponin I High Sens (<3.5-17.0) ng/L Hold Red Top See Note Urine Color Urine Appearance Urine pH (5.0-9.0) Ur Specific [place] (1.005-1.025) Urine Protein (Neg-Trace) mg/dL Urine Glucose (UA) (Negative) mg/dL Urine Ketones (Negative) mg/dL Urine Blood (Negative) Urine Nitrite (Negative) Ur Leukocyte Esterase (Negative) COVID-19 (OZIEL) Negative (Negative) COVID-19 Clin Com See Note 09/26/22 Range/Units 04:13 WBC (4.8-10.8) X10*3/uL RBC (4.20-5.50) X10*6/uL Hgb (12.0-16.0) g/dl Hct (37.0-47.0) % MCV (80.0-98.0) fL MCH (27.0-33.0) pg MCHC (31.0-35.0) g/dl RDW (11.0-16.0) % Plt Count (160-400) X10*3/uL MPV (9.4-12.3) fL Immature Gran % (Auto) (0.0-0.4) % Neut % (Auto) (45-73) % Lymph % (Auto) (20-40) % [place] % (Auto) (2-11) % Eos % (Auto) (0-4) % Baso % (Auto) (0-2) % Lymph # (Auto) (1.2-4.9) X10*3/uL [place] # (Auto) (0.1-1.2) X10*3/uL Eos # (Auto) (0.0-0.4) X10*3/uL Baso # (Auto) (0.0-0.2) X10*3/uL Abs Immat Gran (auto) (0.00-0.03) X10*3/uL Absolute Neuts (auto) (2.0-8.3) x10*3/uL Absolute Nucleated RBC (0.0-0.012) X10*3/uL Nucleated RBC % (auto) (0.0-0.2) /100WBC PT (10.0-13.1) SEC Whole Blood PT (11.1-13.5) sec INR (0.9-1.1) Whole Blood INR (0.9-1.1) Sodium (135-145) mmol/L Potassium (3.3-5.1) mmol/L Chloride (96-108) mmol/L Carbon Dioxide (22-29) mmol/L Anion Gap (12-20) BUN (9-16) mg/dL Creatinine (0.5-1.4) mg/dL Estim Creat Clear Calc Estimated GFR POC Glucose (60-115) mg/dL Random Glucose (60-115) mg/dL Lactic Acid (0.5-2.0) mmol/L Calcium (8.4-10.2) mg/dL Troponin I High Sens (<3.5-17.0) ng/L Hold Red Top Urine Color Yellow Urine Appearance Clear Urine pH 7.5 (5.0-9.0) Ur Specific [place] 1.025 (1.005-1.025) Urine Protein Negative (Neg-Trace) mg/dL Urine Glucose (UA) Negative (Negative) mg/dL Urine Ketones Negative (Negative) mg/dL Urine Blood Negative (Negative) Urine Nitrite Negative (Negative) Ur Leukocyte Esterase Negative (Negative) COVID-19 (OZIEL) (Negative) COVID-19 Clin Com NIH Stroke Scale Internal: Initial- Upon Arrival Level of Consciousness: Alert Level of Consciousness Questions: Answers both questions correctly Level of Consciousness Commands: Performs both tasks correctly Best Gaze: Normal Visual: No visual loss Facial Palsy: Normal Motor Arm (Right): No drift Motor Arm (Left): No drift Motor Leg (Right): No drift Motor Leg (Left): No drift Limb Ataxia: Absent Sensory: Normal Best Language: No aphasia Dysarthia: Normal Extinction and Inattention: No abnormality Score: 0 Discharge Plan Discharge Clinical Impression: Weakness Patient Disposition: Still a Patient Prescriptions: No Action metformin 500 mg tablet 1 tab PO BID clonazepam 0.5 mg tablet 0.5 mg PO BID@0900,1200 clonazepam 0.5 mg tablet 0.5 mg PO DAILY PRN (Reason: Anxiety) clonazepam 0.5 mg tablet 1 mg PO BEDTIME olanzapine 5 mg tablet 1 tab PO QPM hydroxyzine pamoate 50 mg capsule 2 cap PO BEDTIME aspirin 81 mg tablet,delayed release (DR/EC) 1 tab PO DAILY carvedilol 3.125 mg tablet 1 tab PO BID zolpidem 10 mg tablet 1 tab PO QPM escitalopram oxalate 10 mg tablet 1 tab PO DAILY ibuprofen [Advil] 200 mg Tablet 400 mg PO Q6H PRN (Reason: Pain)
[2022-09-25 23:46] LABS: Prothrombin Time Whole Bld POC 12.1 sec (11.1-13.5)
[2022-09-25 23:48] LABS: Glucose, Whole Blood 147 mg/dL (60-115)
[2022-09-26] VITALS (12 sets, daily range): BP systolic 112–143; BP diastolic 56–94; PULSE 59–103; RESP 12–20; TEMP 36.5–38.3; O2SAT 92–97; BMI 29.0
[2022-09-26] MEDS: iohexoL 350 MG/ML 100 ML INFUS..BTL IV (00:11)
[2022-09-26 00:22] LABS: Basophils Percent Auto 0.2 % (0-2); Eosinophils Absolute Auto 0.1 X10*3/uL (0.0-0.4); Eosinophils Percent Auto 1.2 % (0-4); Hematocrit 39.9 % (37.0-47.0); Hemoglobin 13.2 g/dl (12.0-16.0); Imm Gran Abs Auto 0.03 X10*3/uL (0.00-0.03); Imm Gran Pct Auto 0.3 % (0.0-0.4); Lymphocytes Absolute Auto 0.9 X10*3/uL (1.2-4.9); Lymphocytes Percent Auto 9.6 % (20-40); MANUAL DIFF FLAG NO; Mean Corpuscular HGB Conc 33.1 g/dl (31.0-35.0); Mean Corpuscular Hemoglobin 28.9 pg (27.0-33.0); Mean Corpuscular Volume 87.3 fL (80.0-98.0); Mean Platelet Volume 10.1 fL (9.4-12.3); Monocytes Absolute Auto 0.6 X10*3/uL (0.1-1.2); Monocytes Percent Auto 6.1 % (2-11); Neutrophils Absolute Auto 7.6 x10*3/uL (2.0-8.3); Neutrophils Percent Auto 82.6 % (45-73); Platelet Count 215 X10*3/uL (160-400); Red Blood Count 4.57 X10*6/uL (4.20-5.50); Red Cell Distribution Width 13.4 % (11.0-16.0); White Blood Count 9.2 X10*3/uL (4.8-10.8)
[2022-09-26 00:28] LABS: Prothrombin Time 10.9 SEC (10.0-13.1)
[2022-09-26 00:30] LABS: Stroke Lab Use COMPLETE
[2022-09-26 00:40] LABS: Anion Gap 16 (12-20); Blood Urea Nitrogen 18 mg/dL (9-16); Calcium 9.7 mg/dL (8.4-10.2); Carbon Dioxide 26 mmol/L (22-29); Chloride 99 mmol/L (96-108); Creatinine Clr Calc Pharmacy 68.7; Estimated Glomerular Filt Rate > 60; Glucose Random 145 mg/dL (60-115); Potassium 4.1 mmol/L (3.3-5.1); Sodium 137 mmol/L (135-145)
--- OUTSIDE RECORDS SUMMARY | 2022-09-26 00:40 | XMS_ITS ---
:1950 Author Name AleLuis anthonynima Care Team Providers Name Role Phone Fatou García Unavailable Unavailable PROBLEMS Type Condition ICD9-CM Code EJD82-MM Onset Condition SNOMED Code Code Dates Status Problem Type 2 E11.9 Active 864293805 diabetes mellitus without complication, without long-term current use of insulin Problem Hammer toe of M20.42 Active 386224 [id number] left foot Problem Primary M19.072 Active 679805520 osteoarthritis , left ankle and foot Problem Primary M19.071 Active 513669246 osteoarthritis , right ankle and foot ALLERGIES No Known Allergies ENCOUNTERS Encounter Location Date Diagnosis [address] Aug, [place] [address] May, Arlette lulitis of left toe [place], [place] L03.032 ; Type 2 diabetes [address] mellitus without complication, wi thout long-term curren t use of insulin E11.9 ; Tinea unguium B35.1 ; Pain in toe of left foot M79.675 ; Pain in toe of r ight foot M79.674 and Ingr own nail L60.0 [facility] [address] [place] [address] May, [place] [address] May, [place] [address] April, Arlette lulitis of left toe [place] L03.032 ; Other hammer [address] toe(s) (acquired ), right foot M20.41 ; Anthony mmer toe of left foot M20 .42 ; Type 2 diabetes melli tus without complica tion, without long-ter m current use of insulin E 11.9 and Abscess of toe o f left foot L02.[address] Mar, [place] [address] Mar, [place] [address] Mar, Typ e 2 diabetes mellitus [place] with diabetic [address] polyneuropathy E 11.42 ; Pain in left kathy t M79.672 ; Pain in right foot M79.671 ; Tinea unguium B35.1 ; Primary osteoarthritis, left ankle and foot M19.072 ; Pain in right toe(s) M79 .674 ; Primary osteoart hritis, right ankle and foot M19.071 and Pain in left toe(s) M79.[address] Jan, [place] [address] Jan, Oth er viral warts B07.8 ; [place] Pain in left fo ot M79.672 [address] and Pain in righ t foot M79.671 [facility] Jan, [place] [address] [facility] Jan, [place] [address] [facility] Jan, Typ e 2 diabetes mellitus [place] with diabetic [address] polyneuropathy E 11.42 ; Other viral wart s B07.8 ; Pain in left kathy t M79.672 ; Pain in right foot M79.671 ; Tinea unguium B35.1 ; Primary osteoarthritis, left ankle and foot M19.072 ; Pain in right toe(s) M79 .674 ; Primary osteoart hritis, right ankle and foot M19.071 and Pain in left toe(s) M79.[address] Nov, [place] [address] Oct, [place] [address] Sep, [place] [address] Aug, Typ e 2 diabetes mellitus [place]harat [place] with diabetic [address] polyneuropathy E 11.42 ; Primary osteoart hritis, left ankle and f oot M19.072 and Prim kevin osteoarthritis, right ankle and foot M 19.[address] Aug, [place] [address] Aug, [place] [address] Aug, [place] [address] Aug, [place] [address] Aug, Typ e 2 diabetes mellitus [place]har[place] with diabetic [address] polyneuropathy E 11.42 ; Primary osteoart hritis, left ankle and f oot M19.072 and Prim kevin osteoarthritis, right ankle and foot M 19.071 IMMUNIZATIONS Vaccine Route Administration Date Status COVID-19 Alfredo & Alfredo/Willy Unknown April 13, 2022 Administered Influenza Unknown Aug 16, 2021 Administered Influenza Unknown Jan 07, 2019 Administered SOCIAL HISTORY Qualifiers Date Former Smoker REASON FOR REFERRAL FUNCTIONAL STATUS PLAN OF CARE Activity Details Future Appointment Provider Name:Becky lockett, 2023-05-03 11:00:00 AM, [address] [place] [address], [id number], Pending Test X ray : Foot, left 2V Pending Test X ray : Foot, right 2V Future/Pending Procedure [id number] SKIN LESIONS, 2 T O 4 Future/Pending Procedure [id number] DYSTROPHIC NA ILS ANY # Future/Pending Procedure [id number] SKIN LESIONS, 2 T O 4 VITAL SIGNS Height 5 ft 6 in in 2022-05-04 Weight 155 lbs 2022-05-04 BMI 25.01 kg/m2 2022-05-04 Heart Rate 75 /min 2018-08-11 Blood pressure systolic 112 mm Hg 2019-03-02 Blood pressure diastolic 72 mm Hg 2019-03-02 MEDICATIONS Medication Instructions Dosage Frequency Start End Duration Statu s Date Date metFORMIN HCl Orally Once a 1 tablet 24h Act marlen 500 MG day with a meal Carvedilol 3.125 Unknown MG clonazePAM 0.5 Orally Once a 1 tablet at 24h Active MG day bedtime Aspirin Adult Orally Once a 1 tablet 24h 30 day(s) A ctive Low Dose 81 MG day KlonoPIN 0.5 MG Orally Once a 1 tablet at 24h Unknown day bedtime metFORMIN HCl Orally Once a 1 tablet 24h 30 day(s) A ctive 500 MG day with a meal Escitalopram Orally Once a 1 tablet 24h 30 day(s) Ac tive Oxalate 10 MG day Carvedilol 3.125 Orally Twice a 1 tablet 12h 30 day( s) Active MG day with food Cephalexin 500 Orally every 12 1 capsule 12h 5 day(s ) Active MG hrs Escitalopram Orally Once a 1 tablet 24h 30 day(s) Ac tive Oxalate 10 MG day Extra Depth as directed April, Orthopedic Shoes 2021 (1 Pair) with Customized Heat Molded Multidensity Innersoles (3 Pair) Lexapro 10 MG Orally Once a 1 tablet 24h Unk day Extra Depth for 1 year Unknown Diabetic Shoes with 3 Pair Custom heat-molded multi-density innersoles Custom Orthotics as directed Mar, Unk now2018 PROCEDURES Procedure Date Ordered Result Body Site DEBRIDE NAIL, 1-5 Jan 07, 2019 DRAINAGE OF SKIN ABSCESS April 13, 2022 X-RAY EXAM OF RIGHT FOOT 2V Aug 11, 2018 Avulsion Plate May 04, 2022 DEBRIDE NAIL, 6 OR MORE May 04, 2022 Wart Destruction, 1-14 Jan 07, 2019 TRIMMING DYSTROPHIC NAILS ANY # Jan 07, 2019 TRIM SKIN LESIONS, 2 TO 4 Aug 11, 2018 TRIM SKIN LESIONS, 2 TO 4 Jan 07, 2019 X-RAY EXAM OF LEFT FOOT 2V Aug 11, 2018 FT INSRT REMV MOLD LNGTUDNL SUPP EA Aug 11, 2018 RESULTS Name Result Date Reference Range HEMOGLOBIN A1C (GLYCOHEMOGLOBIN) TOTAL HEMOGLOBIN (HGBA1C) 5.8 HEMOGLOBIN A1C (HH) HEMOGLOBIN A1C % (HH) ESTIMATED AVG GLUCOSE REASON FOR VISIT Insurance Providers [facility] Health Member Patient Patient Patient Patient Patient Subscriber Subscriber Subscriber Group Insurance Plan Plan Plan Plan ID Relationship Address Phone Name Date of ID Name Date of No Type Insurance Insurance Insurance Coverage to Subscriber Address Phone Name Dates [facility] [phone] [facility] [place] [id number] [place] [address] Medicare le Advantage [address] [facility] [address] Medicare National [phone] Medicare self Amy [id number] Gov Sv[address] [employer] [address] [facility] [place] [address] MEDICAL (GENERAL) HISTORY Type Description Date Medical History Anxiety Medical History Back,Hip,and Knee pain Medical History Depression Medical History diabetes Medical History Measles Medical History Chicken pox Medical History CAD (Cholesterol) Medical History Cancer Surgical History gall bladder 01/18/2017 Surgical History lumbar laminectomy, L4-L5 1972 Surgical History tonsillectomy and adenoidectomy 1968
--- OUTSIDE RECORDS SUMMARY | 2022-09-26 00:40 | XMS_ITS | Continuity of Care Document ---
:1950 Author Organization [facility] Address [address] [place] [address]- Care Team Providers Name Role Phone Fatou García MD Primary Care Physician Encounter [facility] Date(s): 01/01/20 - 01/01/[address] [address]- [facility] Attending Physician: Fatou García MD Allergies, Adverse Reactions, Alerts Substance Reaction Severity Status NKA Active Immunizations Not Given Vaccine Date Status Refusal Reason pneumococcal 13-valent vaccine 10/29/19 Not Given P atient Refuses Medications Coreg 3.125 mg oral tablet 3.125 mg, 1, tablet, By Mouth, 2 times a day, Refills 0, Maintenance, 11/02/19 14:42:51 EST Start Date: 11/02/19 Status: OrderedGlucophage 500 mg oral tablet 1 each = 500 mg, By Mouth, 2 times a day, 0 Refills, Maintenance, 11/02/19 14:43:06 EST, Tablet Start Date: 11/02/19 Status: OrderedKlonoPIN 0.5 mg oral tablet 1 tablet = 0.5 mg, By Mouth, 3 times a day, PRN Anxiety, # 9 capsule, 0 Refills, Maintenance, 11/02/19 14:43:40 EST, Tablet Start Date: 11/02/19 Stop Date: 11/05/19 Status: Ordered
[2022-09-26 00:42] LABS: Troponin-I High Sensitivity < 3.5 ng/L (<3.5-17.0)
[2022-09-26 00:54] LABS: COVID-19 Test Negative (Negative)
[2022-09-26] MEDS: 0.9 % Sodium Chloride 1,000 ML 999 ML IV (03:40)
[2022-09-26 03:56] LABS: Lactic Acid 1.1 mmol/L (0.5-2.0)
[2022-09-26 04:18] LABS: Appearance Urine Clear; Color Urine Yellow; Glucose Urine UA Negative (Negative); Leukocyte Esterase Urine Negative (Negative); Nitrite Urine Negative (Negative); PH 7.5 (5.0-9.0); Specific Gravity - Urine 1.025 (1.005-1.025); Urine Blood Negative (Negative); Urine Ketones Negative (Negative); Urine Protein Negative (Neg-Trace)
--- NOTE | 2022-09-26 05:20 | PC.NURSE ---
Pt. unable to ambulate safely. RNs x2 attempted to get pt. OOB. Notified MD Jaycob that pt. is unable to ambulate. Awaiting PT consult
[2022-09-26] MEDS: Aspirin Enteric Coated 81 MG TABLET.DR PO (10:10)
[2022-09-26] MEDS: metFORMIN HCl 500 MG TABLET PO (10:10)
[2022-09-26] MEDS: carvediloL 3.125 MG TABLET PO (10:10)
[2022-09-26] MEDS: clonazePAM 0.5 MG TABLET PO ×2 (10:11→13:21)
[2022-09-26] MEDS: Escitalopram Oxalate 10 MG TABLET PO (10:11)
--- NOTE | 2022-09-26 10:17 | MHC.CM.ED ---
Received case management consult overnight. Patient came to ER due to CVA symptoms. Work up essentially negative. Physical therapy eval completed. Short term rehab is recommended. Met with patient in regards to discharge planning. Patient lives with her mother, ambulates independently and had no services prior to coming to the hospital. PCP verified. Copy of HCP verified. to be on file. Patient has received 1 J&J vaccine and has been boosted 4 times. List of facilities contracted with patient's insurance provided to patient from [facility]. Patient has been to [facility] in the past and is requesting referral to that facility. Referral made via [facility]. Continue to monitor for d/c needs.
--- NOTE | 2022-09-26 14:12 | MHC.CM.ED ---
[facility] is able to accept patient and has obtained insurance auth. Patient can leave at 4pm. [facility] booked. Med nec with chart. Patient, Uriah RN and Sade IRVIN aware. Continue to monitor for d/c needs.
[2022-09-26] MEDS: Mirabegron 25 MG TAB.ER.24H PO (17:04)
== END 2022-09-26 17:31 | disposition skilled nursing facility (03) ==
PROVIDERS: Emergency Provider Internal Medicine; PCP Internal Medicine
DX: R47.81 Slurred speech (principal); R53.1 Weakness; R26.81 Unsteadiness on feet; R07.89 Other chest pain; R51.9 Headache, unspecified; Z79.899 Other long term (current) drug therapy; Z20.822 Contact with and (suspected) exposure to COVID-19
CPT/HCPCS: 36415; 70450; 70496; 70498; 71045; 80048; 81003; 82947; 83605; 84484; 85025; 85610; 87040; 87635; 93005; 96360; 96361; 97162; 99285; Q9967

== ENCOUNTER 2022-12-26 10:22 | Outpatient (REF) | payer MEDICARE, SELFPAY ==
[2022-12-26 11:39] LABS: Thyroid Stimulating Hormone 1.36 uIU/mL (0.32-4.0)
[2023-01-04 19:14] LABS: Acetylcholine Recep Modulating <1
[2023-01-04 20:18] LABS: Acetylcholine Recept. Blocking <15 (<15)
== END 2022-12-26 10:23 | disposition home or self-care (01) ==
LOC: HO.LAB 10:22
PROVIDERS: Visit Provider Psychiatry & Neurology Neurology
DX: R26.89 Other abnormalities of gait and mobility (principal)
CPT/HCPCS: 36415; 82550; 83519; 84443

== ENCOUNTER 2024-01-08 12:11 | Outpatient (AMB) | payer MEDICARE, SELFPAY ==
--- NOTE | 2024-01-08 12:19 | A.OFFVIS_ITS ---
Intake Intake Visit Reasons: New patient PMB Allergies No Known Allergies [No Known Allergies*] Allergy (Unverified 08/18/20 16:05) HPI HPI Comments History of Present Illness Details Presenting referred from her PCP's . The patient had 2 episodes of vaginal bleeding over the last 3 months the 1st 1 being in August of 2024. No other associated symptoms. Last co testing unknown [facility] Medical History Cerebral microvascular disease Dementia Peripheral neuropathy Anxiety Diabetes mellitus Surgical History History of cholecystectomy Family History Other Cancer Coronary artery disease Diabetes mellitus Hypertension Social History Alcohol intake: never Patient Tobacco Use Status: Never used Tobacco Advance Directives Date on File: 02/19/22 service: No Current occupational status: retired Review of Systems Const All systems reviewed & are unremarkable except as noted in HPI and below Physical Exam General: Yes no CVA tenderness External Female Exam: normal external appearance and normal appearance of the urethra Speculum Exam - Vagina: normal appearance of the vagina, normal palpation, no lesions and no masses Speculum Exam - Cervix: normal appearance of the cervix, normal palpation, no lesions, no masses and nontender Bimanual exam- vagina & uterus: normal bimanual exam, normal palpation, uterine size normal, normal palpation, uterine shape normal, No Cervical tenderness present and non-tender Bimanual Exam- Adnexa, other: normal adnexae Back/Spine/Pelvis Back: no CVA tenderness Assessment & Plan Assessment & Plan (1) Postmenopausal bleeding: Code(s): N95.0 - Postmenopausal bleeding Plan: Discussed with the patient the differential diagnosis of post menopausal bleeding with normal pelvic exam including but not limited to, endometrial hyperplasia, cancer, polyps and other causes; co testing done, recommended ultrasound to measure the endometrial stripe; discussed with the patient that if the endometrial thickness is 4 mm or less the negative predictive value of endometrial pathology is 99%, otherwise If endometrial thickness is more than 4 mm will proceed with endometrial sampling versus hysteroscopy D&C polypectomy depending on the ultrasound findings. Instructed the patient to schedule an ultrasound follow-up appointment in 2 weeks. All questions answered, the p atient verbalized understanding and agreed with the plan. Orders: Orders US pelvic and transvaginal Today N95.0 - Postmenopausal bleeding Coding Level of Care Code New Pt Level 3 (39261) Diagnoses Postmenopausal bleeding N95.0
== END 2024-01-08 12:42 | disposition home or self-care (01) ==
LOC: HO.HWS 12:11
PROVIDERS: PCP Internal Medicine; Visit Provider Obstetrics & Gynecology
DX: N95.0 Postmenopausal bleeding (principal)
CPT/HCPCS: 99203

== ENCOUNTER 2024-01-08 12:11 | Outpatient (REF) | payer MEDICARE, SELFPAY ==
[2024-01-13 20:09] LABS: HPV mRNA E6/E7 rflx Not Detected (Not Detected)
== END 2024-01-08 12:12 | disposition home or self-care (01) ==
LOC: HO.LNP 12:11
PROVIDERS: PCP Internal Medicine; Visit Provider Obstetrics & Gynecology
DX: N95.0 Postmenopausal bleeding (principal)
CPT/HCPCS: 87624; 88142; 99202

== ENCOUNTER 2024-01-22 10:50 | Outpatient (REF) | payer MEDICARE, MEDICAID, SELFPAY ==
--- NOTE | ~2024-01-22 | US_ITS ---
EXAMINATION: US PELVIS CLINICAL INFORMATION: Postmenopausal bleeding. COMPARISON: None available. TECHNIQUE: Ultrasound of the pelvis is performed using both transabdominal and transvaginal transducers along with Doppler. Transvaginal imaging is performed due to inadequate visualization transabdominally. FINDINGS: UTERUS: The uterus is anteverted and measures 5.9 x 2.8 x 4.0 cm. The double wall endometrial thickness is thickened with cystic spaces measuring 1.5 cm with vascularity. The uterus is smooth in contour and has normal myometrial echogenicity. No visible fibroid. Nabothian cyst is present in the cervix. ADNEXA: Both ovaries are visualized. There is normal color flow to the adnexa. There is no ovarian torsion. There is no pelvic ascites or fluid collection. Right ovary measures: 1.3 x 2.3 x 0.8 cm for a volume of 1.3 mL and appears unremarkable. Left ovary measures: 1.7 x 1.1 x 1.3 cm for a volume of 1.2 mL and appears unremarkable. US/US pelvic and transvaginal IMPRESSION: Thickened abnormal endometrium with cystic spaces and vascularity.
== END 2024-01-22 10:51 | disposition home or self-care (01) ==
LOC: HO.US 10:50
PROVIDERS: PCP Internal Medicine; Visit Provider Obstetrics & Gynecology
DX: N95.0 Postmenopausal bleeding (principal)
CPT/HCPCS: 76830; 76856

== ENCOUNTER 2024-02-06 09:29 | Outpatient (REF) | payer MEDICARE, SELFPAY | END 2024-02-06 09:30 | disposition home or self-care (01) | LOC: HO.LNP 09:29 | PROVIDERS: PCP Internal Medicine; Visit Provider Obstetrics & Gynecology | DX: N95.0 Postmenopausal bleeding (principal) | CPT/HCPCS: 58100; 88305 ==

== ENCOUNTER 2024-02-06 09:29 | Outpatient (AMB) | payer MEDICARE, SELFPAY ==
--- NOTE | 2024-02-06 10:02 | A.OFFVIS_ITS ---
Intake Vital Signs 02/06/24 10:03 Height 5 ft 6 in BP 132/80 Intake Visit Reasons: Ultrasound Results/EMB Driver Helper Required: No Information Interpreted: non-clinical & clinical Supervisor Composing Room: Supervisor Composing Room Present (Aidyn) Allergies No Known Allergies [No Known Allergies*] Allergy (Verified 02/06/24 10:03) Is last menstrual period known: No Post menopausal: Yes Patient : No HPI HPI Comments History of Present Illness Details Presenting for ultrasound follow-up regarding postmenopausal bleeding. Ultrasound showed the following: UTERUS: The uterus is anteverted and measures 5.9 x 2.8 x 4.0 cm. The double wall endometrial thickness is thickened with cystic spaces measuring 1.5 cm with vascularity. The uterus is smooth in contour and has normal myometrial echogenicity. No visible fibroid. Nabothian cyst is present in the cervix. ADNEXA: Both ovaries are visualized. There is normal color flow to the adnexa. There is no ovarian torsion. There is no pelvic ascites or fluid collection. Right ovary measures: 1.3 x 2.3 x 0.8 cm for a volume of 1.3 mL and appears unremarkable. Left ovary measures: 1.7 x 1.1 x 1.3 cm for a volume of 1.2 mL and appears unremarkable. [facility] Medical History Cerebral microvascular disease Dementia Peripheral neuropathy Anxiety Diabetes mellitus Surgical History History of cholecystectomy Family History Other Cancer Coronary artery disease Diabetes mellitus Hypertension Social History Alcohol intake: never Patient Tobacco Use Status: Never used Tobacco Advance Directives Date on File: 02/19/22 Patient : No service: No Current occupational status: retired Female Reproductive History Menstrual control method: none Review of Systems Const All systems reviewed & are unremarkable except as noted in HPI and below Reports as per HPI and Reports no additional complaints GI Reports no additional complaints Reports no additional complaints Physical Exam Vital Signs: Last Vital Signs BP 132/80 02/06/24 10:03 Office Procedures Endometrial Biopsy Details: The patient was counseled regarding the indication and benefits of endometrial sampling to rule out endometrial pathology including not limited to endometrial hyperplasia or endometrial cancer and others; The alternatives (Either do nothing vs. hysteroscopy D&C) & the risks were discussed with the patient including but not limited: pain, uterine perforation, bleeding, infection, possible injury to bladder, bowel, ureter, possible need for blood transfusion with all its possible risks. The patient verbalized understanding all questions answered and signed consent. The patient was placed into the dorsal lithotomy position; a speculum was inserted in the vagina. Using aseptic technique for the procedure, the cervix was cleansed with Betadine. The anterior lip of the cervix was grasped with a single tooth tenaculum. The uterus was sounded to 6 cm with a 4 mm Pipelle was used. Tissues samples were obtained and placed in formalin, in a patient labeled container and sent to the pathology department. At the end of the procedure, there was minimal bleeding noted The patient tolerated the procedure well and was discharged in good condition with the following instructions: Nothing in the vagina until the bleeding stops. No sex until the bleeding stops, to call if any of the following occurs: fever (>100.4), flu-like symptoms, abdominal pain, heavy bleeding, four smelling vaginal discharge. The patient was instructed to schedule a Follow up appointment in 2 weeks to discuss pathology results of the biopsy and treatment options. This note was generated with a voice recognition program. Some errors may have been overlooked during the review of this note. Sometimes these errors may affect the content or meaning of a given sentence. [id number] Biopsy Assessment & Plan Assessment & Plan (1) Postmenopausal bleeding: Comment: Abnormal endometrium by ultrasound Code(s): N95.0 - Postmenopausal bleeding Plan: Discussed with the patient the pelvic ultrasound findings, the endometrial stripe thickenss abnormal and measured by ultrasound was more than 4mm. The negative predictive value, positive predictive value, Sensitivity, specificity of using ultrasound measurement of endometrial stripe to detecting endometrial pathology including hyperplasia , polyp or cancer were discussed with the patient. Recommended to the patient that the next step is an endometrial sampling via hysteroscopy D&C possible polypectomy versus endometrial biopsy to r/o endometrial pathology including hyperplasia or cancer. All the pros and cons risks and benefits of each approach were discussed with the patient, endometrial biopsy being less invasive, office procedure with less sensitivity and inability diagnose a polyp and removal versus hysteroscopy done under anesthesia more invasive more sensitive to endometrial cancer and possibility of diagnosing and endometrial polyp with the possibility of polypectomy. All questions were answered pt verbalized understanding and decided to proceed with endometrial biopsy. EMB done, see procedure note Orders: Orders AMB Endometrial Biopsy Today N95.0 - Postmenopausal bleeding Coding Level of Care Code Procedure Only Diagnoses Postmenopausal bleeding N95.0 CPT Codes Endometrial Biopsy - CPT: 62747-[id number] Biopsy ([id number])
[2024-02-06 10:03] VITALS: BP 132/80
== END 2024-02-06 10:25 | disposition home or self-care (01) ==
LOC: HO.HWS 09:29
PROVIDERS: PCP Internal Medicine; Visit Provider Obstetrics & Gynecology
DX: N95.0 Postmenopausal bleeding (principal)
CPT/HCPCS: 58100

== ENCOUNTER 2024-03-23 10:25 | Outpatient (AMB) | payer MEDICARE, SELFPAY ==
--- NOTE | 2024-03-23 10:58 | A.OFFVIS_ITS ---
Vital Signs 03/23/24 11:01 Height 5 ft 6 in Intake Visit Reasons: emb follow up Allergies No Known Allergies [No Known Allergies*] Allergy (Verified 02/06/24 10:03) HPI Comments Details: The patient is presenting after endometrial biopsy. The patient has no complaints, no vaginal bleeding, no feverishness chills or abdominal pain. Endometrial biopsy pathology showed the following: Endometrium, biopsy: Strips of benign atrophic endometrium with metaplastic changes, and benign endocervical glandular and squamous epithelium. Comment: No atypia or carcinoma is identified however, the findings do not explain a thickened endometrium and follow-up is warranted [facility] Medical History Cerebral microvascular disease Dementia Peripheral neuropathy Anxiety Diabetes mellitus Surgical History History of cholecystectomy Family History Other Cancer Coronary artery disease Diabetes mellitus Hypertension Social History Alcohol intake: never Patient Tobacco Use Status: Never used Tobacco Advance Directives Date on File: 02/19/22 service: No Current occupational status: retired Review of Systems Const All systems reviewed & are unremarkable except as noted in HPI and below Reports as per HPI and Reports no additional complaints GI Reports no additional complaints Reports no additional complaints Assessment & Plan Assessment & Plan (1) Postmenopausal bleeding: Code(s): N95.0 - Postmenopausal bleeding Category: Medical Plan: Discussed with the patient the results of the endometrial biopsy showing inactive endometrium. Discussed with the patient the sensitivity, specificity, positive and negative predictive value, of endometrial biopsy in detecting endometrial pathology including but not limited to endometrial hyperplasia, cancer and other pathology; instructed the patient to call in case vaginal bleeding bleeding recurs, the next step will be to proceed with a diagnostic hysteroscopy/D&C for further endometrial sampling evaluation to rule out endometrial pathology. All questions answered and the patient verbalized understanding and agreed with the plan.
== END 2024-03-23 11:05 | disposition home or self-care (01) ==
LOC: HO.HWS 10:58
PROVIDERS: PCP Internal Medicine; Visit Provider Obstetrics & Gynecology
DX: N95.0 Postmenopausal bleeding (principal)
CPT/HCPCS: 99213

== ENCOUNTER → 2024-03-23 10:58 | Outpatient (BNVA) | payer MEDICARE, SELFPAY | PROVIDERS: PCP Internal Medicine; Visit Provider Obstetrics & Gynecology | DX: N95.0 Postmenopausal bleeding (principal) | CPT/HCPCS: 99212 ==

== ENCOUNTER 2025-06-15 10:21 | Outpatient (AMB) | payer MEDICARE, SELFPAY ==
--- NOTE | 2025-06-15 10:31 | MHC.OFFVIS ---
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 No complaints. Last Pap/HPV was negative in 01/25 No recent Mammogram No previous Colonoscopy No previous DEXA scan [facility] Medical History Cerebral microvascular disease Dementia Peripheral neuropathy Anxiety Diabetes mellitus Surgical History History of cholecystectomy Family History Other Cancer Coronary artery disease Diabetes mellitus Hypertension Social History Alcohol intake: never Patient Tobacco Use Status: Never used Tobacco Advance Directives Date on File: 02/19/22 service: No Current occupational status: retired Female Reproductive History Menstrual Date of last pap smear: 01/30/24 Date of Mammogram: 01/22/24 Review of Systems Const All systems reviewed & are unremarkable except as noted in HPI and below Card Reports as per HPI Resp Reports as per HPI GI Reports as per HPI and Reports no additional complaints Reports as per HPI Physical Exam Vital Signs: Last Vital Signs BP 98/60 06/15/25 10:40 BMI result Body Mass Index 23.6 Const General: cooperative, healthy appearing and comfortable Chest Chest palpation & inspection: normal inspection of the chest and normal palpation of entire chest wall Breast/axilla inspection: normal inspection of the breasts and normal inspection of the axillae Breast/axilla palpation: normal palpation of the breasts, normal palpation of the axillae and no axillary lymphadenopathy Resp Effort & Inspection: normal respiratory effort Auscultation: clear to auscultation bilaterally Percussion: percussion normal Cardio Palpation: normal PMI Rate: regular rate Rhythm: regular rhythm Heart sounds: no murmurs and no rubs Peripheral pulses: Peripheral pulses 2+ throughout GI Inspection: Yes normal to inspection Palpation (GI): Soft to palpation, nontender, no guarding, not rigid and No hepatosplenomegaly present Percussion: Yes normal to percussion Auscultation: normal bowel sounds Rectal Exam - Female: deferred General: Yes bladder normal to palpation External Female Exam: No lesion Speculum Exam - Vagina: normal appearance of the vagina, normal palpation, normal vaginal discharge and not erythematous Speculum Exam - Cervix: normal appearance of the cervix and normal palpation Bimanual exam- vagina & uterus: normal bimanual exam, normal palpation, uterine size normal, bladder normal to palpation, consistency normal and normal palpation Bimanual Exam- Adnexa, other: normal adnexae, no masses and no tenderness Assessment & Plan Assessment & Plan (1) Well woman exam: Code(s): Z01.419 - Encounter for gynecological examination (general) (routine) without abnormal findings Category: Medical Plan: Co testing not indicated since the patient 's age is above 65 with no history of abnormal Pap smears last 25 years, adequately screen for the last 10 years with no history of immunosuppression. Counseled the patient about the recommended dietary allowance of 1200 mg of Calcium & 800 IU of vitamin D. Mammogram ordered. Referred her for screening colonoscopy done. Will order DEXA scan . The patient was instructed to perform monthly self-breast exams and to schedule a 2 week DEXA scan follow-up appointment and an annual exam in a year; All questions answered and the patient verbalized understanding. Orders: Orders MM tomosynthesis screening BI Today Z12.31 - Encounter for screening mammogram for malignant neoplasm of breast XR DEXA axial skeleton Today Z78.0 - Asymptomatic menopausal state Referrals Gastroenterology Referral Z12.11 - Encounter for screening for malignant neoplasm of colon Coding Level of Care Code Est Pt Prev Care >65y(53199) Diagnoses Well woman exam Z01.419
[2025-06-15 10:40] VITALS: BP 98/60; BMI 23.6
--- OUTSIDE RECORDS SUMMARY | 2025-06-15 11:31 | XMS_ITS | Patient Health Record ---
Author Organization [facility] Address [address] [place] [address] Care Team Providers Care Turner Machine Name Role Phone Rosalbaelizabeth Fatou Primary Care Provider Becky Pablo Unavailable [phone] Allergies No Known Allergies Reason For Referral No Information Medications Medication SIG (Take, Route, Frequency, Duration) Notes Start Date End Date Status Escitalopram Oxalate 10 MG 1 tablet Orally Once a day; Duration: 30 day(s) Active clonazePAM 0.5 MG 1 tablet at bedtime Orally Once a day Active Cephalexin 500 MG 1 capsule Orally roberto ry 12 hrs; Duration: 5 day(s) Active metFORMIN HCl 500 MG 1 tablet with a sonia l Orally Once a day; Duration: 30 day(s) Active Carvedilol 3.125 MG Orally Unknown Carvedilol 3.125 MG 1 tablet with food O rally Twice a day; Duration: 30 day(s) Active Aspirin Adult Low Dose 81 MG 1 tablet Orally Once a day; Duration: 30 day(s) Active Custom Orthotics as directed 03/31/2019 Unknown metFORMIN HCl 500 MG 1 tablet with a sonia l Orally Once a day Active Extra Depth Diabetic Shoes with 3 Pair Custom heat-molded multi-density innersoles for 1 year Dx: Unknown Extra Depth Orthopedic Shoes (1 Pair) with Customized Heat Molded Multidensity Innersoles (3 Pair) as directed Dx: NIDDM (E11.9), Hammertoe Foot Deformity (M20.41,M20.42), Preulcerative Skin Lesion(s) (L85.1) 04/13/2022 Active Escitalopram Oxalate 10 MG 1 tablet Orally Once a day; Duration: 30 day(s) Active Lexapro 10 MG 1 tablet Orally Once a day Unknown KlonoPIN 0.5 MG 1 tablet at bedtime Orally Once a day Unknown Immunizations Vaccine Route Administration Date Status Comme nts COVID-19 Alfredo & Alfredo/Willy Unknown 04/13/2022 Administered Unsure on dates Influenza Unknown 01/07/2019 Administered Influenza Unknown 08/16/2021 Administered Social History Tobacco Use: Social History Observation Description Date Details (start date - stop date) Former Smoker NA - NA Tobacco Use/Smoking Question Answer Notes Are you a: former smoker Additional Findings: Tobacco Non-User Cu rrent non-smoker,Ex-moderate cigarette smoker (10-19/day) Alcohol Screen Question Answer Notes Did you have a drink containing alcohol in the p ast year? No Points 0 Interpretation Negative Tobacco use other than smoking: Question Answer Notes Are you an other tobacco user? No Problems Problem Type SNOMED Code ICD Code Onset Dates Problem Status W/U Status Risk Notes Problem Localized, primary osteoarthritis of the ankle and/or foot (306142073) Primary osteoarthrit is, right ankle and foot (M19.071) Active confirmed Problem Localized, primary osteoarthritis of the ankle and/or foot (453029435) Primary osteoarthrit is, left ankle and foot (M19.072) Active confirmed Problem Acquired hammer toe of left foot (3483676315699247) Hammer toe of left foot (M20.42) Active confirmed Problem Type II diabetes mellitus without complication (372768863) Type 2 diabetes mellitus without complication , without long-term current use of insulin (E11.9) Active confirmed Plan Of Treatment Pending Test Test Name Order Date X ray : Foot, left 2V 08/11/2018 X ray : Foot, right 2V 08/11/2018 [id number] SKIN LESIONS, 2 TO 4 08/11/20 18 [id number] SKIN LESIONS, 2 TO 4 01/07/20 19 [id number] DYSTROPHIC NAILS ANY # Insurance Providers Payer Name Payer Address Payer Phone Subscriber Number Group Number Insured Name Patient Relationship to Insured Coverage Start Date Coverage End Date [employer] [place] [employer]age [address] [place] [id number] Amy Townsend Self - patient is the insured Medical (General) History Medical History History ICD Code Anxiety Back,Hip,and Knee pain Depression diabetes Measles Chicken pox CAD (Cholesterol) Cancer Surgical History Surgery Date(Month/Year) gall bladder 01/18/2017 lumbar laminectomy, L4-L5 1973 tonsillectomy and adenoidectomy 1968
== END 2025-06-15 11:14 | disposition home or self-care (01) ==
LOC: HO.HWS 10:21
PROVIDERS: PCP Internal Medicine; Visit Provider Obstetrics & Gynecology
DX: Z01.419 Encounter for gynecological examination (general) (routine) without abnormal findings (principal)
CPT/HCPCS: 99397; 99459

== ENCOUNTER → 2025-06-15 10:21 | Outpatient (BNVA) | payer MEDICARE, SELFPAY | PROVIDERS: PCP Internal Medicine; Visit Provider Obstetrics & Gynecology | DX: Z01.419 Encounter for gynecological examination (general) (routine) without abnormal findings (principal) | CPT/HCPCS: 99397 ==

== ENCOUNTER 2025-08-11 10:38 | Outpatient (REF) | payer MEDICARE, SELFPAY ==
--- NOTE | ~2025-08-11 | MM_ITS ---
EXAMINATION: DXA BONE DENSITY AXIAL HISTORY: Z78.0 - Asymptomatic menopausal state TECHNIQUE: [employer] Dual energy absorptiometry (DEXA) of the lumbar spine, total left hip, and femoral neck was performed. COMPARISON: Comparison is made with the prior examination dated 06/25/2017. FINDINGS: The bone mineral density of the lumbar spine is 1.387 g/cm2, corresponding to a T-score of 1.9, and a Z-score of 3.5. This is indicative of normal bone mineral density. This represents a BMD change of -0.1% compared to the prior exam. This is not statistically significant. The bone mineral density of the left total hip is 1.243 g/cm2, corresponding to a T-score of 1.9, and a Z-score of 3.5. This is indicative of normal bone mineral density. This represents a BMD change of -0.6% compared to the prior exam. This is not statistically significant. The bone mineral density of the left femoral neck is 1.146 g/cm2, corresponding to a T-score of 0.8, and a Z-score of 2.6. This is indicative of normal bone mineral density. This represents a BMD change of -0.9% compared to the prior exam. MM/XR DEXA axial skeleton IMPRESSION: Based on bone mineral density, and according to World Health Organization (WHO) criteria, the diagnosis is consistent with normal bone mineral density. Statistically, 68% of repeat scans fall within 1 SD (+/- 0.010 g/cm2 for AP spine L1-L4) and 1 SD (+/- 0.012 g/cm2 for femur total) FRAX is a trademark of the [employer]'s [place] for Metabolic Bone Disease, a World Health Organization (WHO) Collaborating Center. Electronically signed by: Lawson Luis MD 08/11/2025 11:48 AM EDT
--- NOTE | ~2025-08-11 | MM_ITS ---
EXAMINATION: MM SCREENING DIGITAL BREAST TOMOSYNTHESIS, BILATERAL CLINICAL INFORMATION: Screening. Asymptomatic. COMPARISON: Mammography: Comparison is made with available priors TECHNIQUE: Digital breast mammography with tomosynthesis is performed in both the craniocaudal and mediolateral oblique views along with computer-aided detection (CAD). FINDINGS: There are scattered areas of fibroglandular density (ACR BI-RADS breast composition Category b). There are no significant masses, abnormal calcifications, or other abnormalities. MM/MM tomosynthesis screening BI IMPRESSION: No mammographic evidence of malignancy. ASSESSMENT: BI-RADS BI-RADS 1 - Negative RECOMMENDATION: Routine annual mammography screening. 1 year F/U This examination should not preclude the clinical evaluation of a suspicious palpable abnormality. This patient's information was entered into a reminder system with a target due date for their next mammogram. Electronically signed by: Geovanna Mckeon DO 08/16/2025 04:03 PM EDT
--- OUTSIDE RECORDS SUMMARY | 2025-08-11 13:13 | XMS_ITS | Patient Health Record ---
Author Organization [facility] Address [address] [place] [address] Care Team Providers Care Fire Code Inspector Name Role Phone RosalbaelizabethFatou Primary Care Provider Becky Pablo Unavailable [phone] Allergies No Known Allergies Reason For Referral [...] Vaccine Route Administration Date Status Comme nts Influenza Unknown 01/07/2019 Administered Influenza Unknown 08/16/2021 Administered COVID-19 Alfrdeo & Alfredo/Willy Unknown 04/13/2022 Administered Unsure on dates Social History Tobacco Use: Social History Observation [...] primary osteoarthritis of the ankle and/or foot (432611394) Primary osteoarthrit is, right ankle and foot (M19.071) Active confirmed Problem Localized, primary osteoarthritis of the ankle and/or foot (134758284) Primary osteoarthrit is, left ankle and foot (M19.072) Active confirmed Problem Acquired hammer toe of left foot (2733275124978834) Hammer toe of left foot (M20.42) Active confirmed Problem Type II diabetes mellitus without complication (523390687) Type 2 diabetes mellitus without complication , without long-term current use of insulin (E11.9) Active confirmed Plan Of Treatment Pending Test Test Name Order Date X ray : Foot, left 2V 08/11/2018 X ray : Foot, right 2V 08/11/2018 [id number] SKIN LESIONS, 2 TO 4 08/11/20 18 [id number] SKIN LESIONS, 2 TO 4 01/07/20 19 [id number] DYSTROPHIC NAILS ANY # Insurance Providers Payer Name Payer Address Payer Phone Subscriber Number Group Number Insured Name Patient Relationship to Insured Coverage Start Date Coverage End Date [employer] [place] [employer]vantage [address] [place] [id number] Amy Townsend Self - patient is the insured Medical (General) History Medical History History ICD Code Anxiety Back,Hip,and Knee pain Depression diabetes Measles Chicken pox CAD (Cholesterol) Cancer Surgical History Surgery Date(Month/Year) gall bladder 01/18/2017 lumbar laminectomy, L4-L5 1973 tonsillectomy and adenoidectomy 1968
== END 2025-08-11 10:39 | disposition home or self-care (01) ==
LOC: HO.MAMMO 10:38
PROVIDERS: Visit Provider Obstetrics & Gynecology
DX: Z12.31 Encounter for screening mammogram for malignant neoplasm of breast (principal); Z13.820 Encounter for screening for osteoporosis; Z78.0 Asymptomatic menopausal state
CPT/HCPCS: 77063; 77067; 77080

== ENCOUNTER → 2025-08-11 11:00 | Outpatient (BNV) | payer MEDICARE, SELFPAY | PROVIDERS: Visit Provider Radiology Diagnostic Radiology | DX: E28.39 Other primary ovarian failure (principal) | CPT/HCPCS: 77080 ==

== ENCOUNTER 2025-08-25 11:51 | Outpatient (AMB) | payer MEDICARE, SELFPAY ==
--- NOTE | 2025-08-25 11:54 | MHC.OFFVIS ---
Intake Visit Reasons: TV Dexa Results Allergies No Known Allergies (No Known Allergies*) Allergy (Verified 06/15/25 10:41) HPI Comments Details: The patient is presenting for follow up regarding DEXA scan results. The results showed the following: The bone mineral density of the lumbar spine is 1.387 g/cm2, corresponding to a T-score of 1.9, and a Z-score of 3.5. This is indicative of normal bone mineral density. This represents a BMD change of -0.1% compared to the prior exam. This is not statistically significant. The bone mineral density of the left total hip is 1.243 g/cm2, corresponding to a T-score of 1.9, and a Z-score of 3.5. This is indicative of normal bone mineral density. This represents a BMD change of -0.6% compared to the prior exam. This is not statistically significant. The bone mineral density of the left femoral neck is 1.146 g/cm2, corresponding to a T-score of 0.8, and a Z-score of 2.6. This is indicative of normal bone mineral density. This represents a BMD change of -0.9% compared to the prior exam. MM/XR DEXA axial skeleton IMPRESSION: Based on bone mineral density, and according to World Health Organization (WHO) criteria, the diagnosis is consistent with normal bone mineral density. [facility] Medical History Cerebral microvascular disease Dementia Peripheral neuropathy Anxiety Diabetes mellitus Surgical History History of cholecystectomy Family History Other Cancer Coronary artery disease Diabetes mellitus Hypertension Social History Alcohol intake: never Patient Tobacco Use Status: Never used Tobacco Advance Directives Date on File: 02/19/22 service: No Current occupational status: retired Review of Systems Const All systems reviewed & are unremarkable except as noted in HPI and below Reports as per HPI and Reports no additional complaints GI Reports no additional complaints Reports no additional complaints Telehealth Telehealth Telehealth Platform: [employer] Location of provider rendering services: practice address Location of patient: address on file Patient Identification confirmed using: Name, : Yes Telehealth method: video Patient verbally consented to treatment: Yes Patient verbally consented to billing insurance company: Yes Patient informed of any privacy concerns related to visit: Yes Minutes spent on Phone/Video with Pt.: 3 Assessment & Plan Assessment & Plan (1) Menopause: Code(s): Z78.0 - Asymptomatic menopausal state Category: Medical Plan: Discussed with the patient the DEXA results showed no evidence of osteoporosis. Discussed with the patient all the options for osteoporosis prevention including lifestyle modifications including Ca+D supplements 1200 mg po qd/800 MIU, Weight bearing exercises and proteine supplements. The patient verbalized understanding and agreed plan will repeat DEXA in 2 years. I spent a total of 20 minutes reviewing the chart, talking to the patient via video and documenting in the medical record. Coding Level of Care Code Tele Est Pt Level 3 (47685) Diagnoses Menopause Z78.0
--- OUTSIDE RECORDS SUMMARY | 2025-08-25 14:48 | XMS_ITS | Patient Health Record ---
Author Organization [facility] Address [address] [place] [address] Care Team Providers Care Button Sewing Machine Operator Name Role Phone Rosalbaelizabeth Fatou Primary Care Provider Becky Pablo Unavailable [phone] Allergies No Known Allergies Reason For Referral [...] 01/07/2019 Administered Influenza Unknown 08/16/2021 Administered COVID-19 Alfredo & Alfredo/Willy Unknown 04/13/2022 Administered [...] primary osteoarthritis of the ankle and/or foot (924072527) Primary osteoarthrit is, right ankle and foot (M19.071) Active confirmed Problem Localized, primary osteoarthritis of the ankle and/or foot (994076661) Primary osteoarthrit is, left ankle and foot (M19.072) Active confirmed Problem Acquired hammer toe of left foot (8732106620678193) Hammer toe of left foot (M20.42) Active confirmed Problem Type II diabetes mellitus without complication (970451516) Type 2 diabetes mellitus without complication , without long-term current use of insulin (E11.9) Active confirmed Plan Of Treatment Pending Test Test Name Order Date X ray : Foot, left 2V 08/11/2018 X ray : Foot, right 2V 08/11/2018 [id number] SKIN LESIONS, 2 TO 4 08/11/20 18 [id number] SKIN LESIONS, 2 TO 4 01/07/20 19 [id number] DYSTROPHIC NAILS ANY # Insurance Providers Payer Name Payer Address Payer Phone Subscriber Number Group Number Insured Name Patient Relationship to Insured Coverage Start Date Coverage End Date [employer] [place] [employer]vantage [address] [place] [id number] Amy Townsend Self - patient is the insured Medical (General) History Medical History History ICD Code Anxiety Back,Hip,and Knee pain Depression diabetes Measles Chicken pox CAD (Cholesterol) Cancer Surgical History Surgery Date(Month/Year) gall bladder 01/18/2017 lumbar laminectomy, L4-L5 1973 tonsillectomy and adenoidectomy 1968
== END 2025-08-25 12:43 | disposition home or self-care (01) ==
LOC: HO.HWS 11:51
PROVIDERS: Visit Provider Obstetrics & Gynecology
DX: Z78.0 Asymptomatic menopausal state (principal)
CPT/HCPCS: 99213

== ENCOUNTER 2025-09-28 13:45 | Outpatient (AMB) | payer MEDICARE, SELFPAY ==
--- NOTE | 2025-09-28 13:46 | A.OFFVIS_ITS ---
Vital Signs 09/28/25 13:51 Height 5 ft 6 in Weight 148 lb BMI 23.9 BP 114/50 L Blood Pressure Location Rt brachial Position Sitting Pulse 90 Pulse Source Pulse Oximeter Pulse Oximetry (%) 95 Oxygen Delivery Method Room Air Intake Visit Reasons: Colonoscopy Screening Intake Note: New pt for recall colo screening? No evidence of previous colo. Referred by Dr. Vo CC: C.O. intermittent difficulty with constipation and diarrhea. Pt denies any additional sx or concerns. States that her last colonoscopy was many years ago. Allergies No Known Allergies (No Known Allergies*) Allergy (Verified 06/15/25 10:41) HPI HPI Colonoscopy Screening: Details: 74 year old? female with past medical history of hyperlipidemia, diabetes, cerebral microvascular disease, and anxiety is here today for pre colonoscopy screening.? Patient is here from [facility]. Patient was sent to us by her PCP.? Patient reports that her last colonoscopy was many years ago. Patient reports postprandial abdominal bloating. Reports also postprandial loose stools. Patient reports that she is using senna and occasionally she will use Dulcolax suppository, reports not always effective. Patient reports that she is constipated for the most part. Occasional loose stools, however she states that she does not feel like she empties her bowels completely. Patient denies melena, hematochezia, unintentional weight loss or ribbon like stools. Patient denies any dyspepsia, dysphagia or odynophagia. Patient denies any issues with anesthesia in the past. Denies any history of sleep apnea. [facility] Medical History Cerebral microvascular disease Dementia Peripheral neuropathy Anxiety Diabetes mellitus Surgical History History of cholecystectomy Family History Other Cancer Coronary artery disease Diabetes mellitus Hypertension Social History Alcohol intake: never Patient Tobacco Use Status: Never used Tobacco Advance Directives Date on File: 02/19/22 service: No Current occupational status: retired Review of Systems Const Denies weight gain and Denies weight loss ENT Reports no additional complaints, Denies dysphagia and Denies odynophagia Card Reports no additional complaints Resp Reports no additional complaints GI Denies abdominal pain, Denies belching, Denies melena, Denies bloating, Denies change in bowel habits, Reports constipation, Denies dysphagia, Denies excessive flatus, Denies dyspepsia, Denies heartburn, Denies diarrhea, Reports loose stools, Denies nausea, Denies odynophagia and Denies vomiting Musc Reports no additional complaints Neuro Reports no additional complaints Psych Reports no additional complaints Endo Reports no additional complaints Physical Exam Vital Signs: Last Vital Signs Pulse 90 09/28/25 13:51 BP 114/50 L 09/28/25 13:51 Pulse Ox 95 09/28/25 13:51 Oxygen Delivery Method Room Air 09/28/25 13:51 BMI result Body Mass Index 23.9 Const General: healthy appearing, no acute distress and well developed Nutritional Appearance: well nourished Orientation/consciousness: patient oriented x3 Resp Effort & Inspection: normal respiratory effort, able to speak in complete sentences, no tracheal deviation and symmetric chest movement Auscultation: clear to auscultation bilaterally Cardio Rate: regular rate GI Inspection: Yes normal to inspection and No distended Palpation (GI): Soft to palpation, not firm, nontender and No hepatosplenomegaly present Auscultation: normal bowel sounds General: Yes no CVA tenderness Back/Spine/Pelvis Back: no CVA tenderness Skin General skin exam: elasticity normal, turgor normal and dry skin Neuro General: patient oriented x3 Psych Appearance: grossly normal Mental Status: mental status grossly normal Assessment & Plan Assessment & Plan (1) Screen for colon cancer: Code(s): Z12.11 - Encounter for screening for malignant neoplasm of colon (2) Constipation: Code(s): K59.00 - Constipation, unspecified Qualifiers: Constipation type: slow transit constipation Qualified Code(s): K59.01 - Slow transit constipation Plan Patient will stop taking senna and start taking Dulcolax at bedtime. She will take fiber supplement in the morning. Increase fluid intake and activity to promote bowel motility. Patient will return in 2 months to discuss colonoscopy. Patient is agreeable to current plan of care and verbalizes understanding of instructions. She was given the opportunity to ask questions and all questions answered. Thank you for allowing me to participate in her care Medications: New bisacodyl (Dulcolax (bisacodyl)) 10 mg (2 x 5 mg) PO BEDTIME 180 tabs 4RF Coding Level of Care Code New Pt Level 3 (67107) Diagnoses Screen for colon cancer Z12.11 Slow transit constipation K59.01 Constipation type: slow transit constipation Time Spent (min) 40 Comment 30 minutes spent with patient and additional 10 minutes spent reviewing her records
[2025-09-28 13:51] VITALS: BP 114/50; PULSE 90; O2SAT 95; BMI 23.9
== END 2025-09-28 14:08 | disposition home or self-care (01) ==
PROVIDERS: Visit Provider Nurse Practitioner Family
DX: K59.01 Slow transit constipation (principal); R10.9 Unspecified abdominal pain
CPT/HCPCS: 99203

== ENCOUNTER → 2025-09-28 13:45 | Outpatient (BNVA) | payer MEDICARE, SELFPAY | PROVIDERS: Visit Provider Nurse Practitioner Family | DX: Z12.11 Encounter for screening for malignant neoplasm of colon (principal); K59.01 Slow transit constipation | CPT/HCPCS: 99202 ==